=== PATIENT | male | born 1965 | race Caucasian/White ===

== ENCOUNTER 2019-07-14 10:41 | Observation (INO) | payer OTHER, SELFPAY ==
[2019-07-14] VITALS (9 sets, daily range): BP systolic 122–162; BP diastolic 74–91; PULSE 80–103; RESP 16–18; TEMP 36.8–36.9; O2SAT 96–99; BMI 28.7; BMI 23.1; BMI 23.2
--- NOTE | 2019-07-14 11:05 | EKG12_ITS ---
Test Reason : [facility] Blood Pressure : / mmHG Vent. Rate : 066 BPM Atrial Rate : 066 BPM P-R Int : 148 ms QRS Dur : 088 ms QT Int : 382 ms P-R-T Axes : 032 012 026 degrees QTc Int : 400 ms Normal sinus rhythm Normal ECG Confirmed by ALYSA CAO, MIKE ([id number]), supervising editor trailer KALEE TAMAYO ([id number]) on 07/16/2019 4:04:31 PM Referred By: Confirmed By:MIKE WATT MD
--- NOTE | 2019-07-14 11:05 | CT_ITS ---
STUDY: CT BRAIN WITHOUT CONTRAST REASON FOR EXAM: Male, 54 years old. PT CONFUSED, UNCOOPERATIVE, ANXIOUS, ETOH THIS A.M. RADIATION DOSAGE (If Supplied By Facility): CTDIvol = ( 44.99 ) mGy, DLP = ( 2641.42 ) mGycm TECHNIQUE: Transaxial CT imaging of the brain was performed without administration of intravenous contrast material. Individualized dose optimization techniques were used for this CT. COMPARISON: No relevant priors. FINDINGS: Normal soft tissue structures. Normal calvarium. Normal size ventricles and extra-axial spaces for the patient''s age. Normal white matter tracts of the cerebral hemispheres. Normal basal ganglia and thalami. Normal brainstem. Normal cerebellum. There is no intracranial hemorrhage. There are no findings of an acute ischemic infarction. Normal visualized paranasal sinuses. CT/Brain/Head without Contrast IMPRESSION: Normal unenhanced CT scan of the brain. Electronically Signed: Walker Lundberg, at 12:16 EDT Tel , Service support ,
--- NOTE | 2019-07-14 11:06 | ED.VISSUMM ---
- ER Visit Summary Date of Service: 07/14/19 Chief Complaint: [Confusion and inability to sleep well at night] History of Present Illness: The patient is a 54 M [presents to the emergency department via EMS from home. It is unclear why called EMS and patient is rather a poor historian. He does admit to having 1 drink this morning. Patient states he is not been sleeping well for the last 3 weeks. Patient denies any headache. He denies recent illness. Patient states that he did work yesterday and he works at a [employer] shop. Does admit to auditory and visual hallucinations at time. Denies being suicidal or homicidal. No real medical history otherwise.] Physical Examination: [HEENT-PERRLA, EOMI. Cranial nerves II through XII grossly intact. TMs clear. Mucous membranes moist. No adenopathy. Patient somewhat confused and that after introducing himself and I asked several questions of him he reached out his hand again and introduced himself a second time as if he had no recollection of the first introduction. Cardiovascular-regular rate and rhythm without murmur or ectopy Lungs-clear to auscultation, chest wall stable without crepitus or subcu emphysema Abdomen-normoactive bowel sounds, soft, nontender, no rebound or rigidity, no peritoneal signs. Extremities-intact ?4, normal range of motion, normal pulses, atraumatic] Test Results: [CBC with differential obtained showed a slightly elevated white count of 15.6, hemoglobin 16, hematocrit 46, platelets 340. Sodium was 138, potassium 3.1, chloride 102, CO2 27, glucose 115, BUN 14 and creatinine 1.09. Alcohol was less than 3. Urinalysis ordered and pending. CT scan of the brain without contrast was normal.] Emergency Department Course and Treatment: [Patient had an IV line established. Patient would not stay in his room and continually tried to leave however I do not feel he is capable of making an informed decision and I do not feel he has capacity to refuse treatment at this time. He is exhibiting bizarre behavior and does not seem to understand what is going on. I feel patient would benefit from admission. Patient was medicated with Haldol 5 mg IM and Ativan 2 mg IM.] Treatment Plan: [Admit] Disposition: [Admit] Impression: [Mental status change Delirium] Insomnia This note was generated with Dragon dictation software. It may contain incorrect words, spelling, and punctuation that were not noted in review of the chart prior to signing ED Disposition - Plan for ED Patient: Referrals: Care Physician,No Primary [Primary Care Provider] -
--- NOTE | 2019-07-14 11:09 | NURSING ---
NO OLD EKGS
--- NOTE | 2019-07-14 11:12 | EKG12_ITS ---
Test Reason : Blood Pressure : / mmHG Vent. Rate : 099 BPM Atrial Rate : 099 BPM P-R Int : 144 ms QRS Dur : 082 ms QT Int : 330 ms P-R-T Axes : 091 061 065 degrees QTc Int : 423 ms Normal sinus rhythm Nonspecific ST abnormality Abnormal ECG When compared with ECG of 14-JUL-2019 11:12, MANUAL COMPARISON REQUIRED, DATA IS UNCONFIRMED Confirmed by ZEUS CAO, SHRUTHI ([id number]), editorial cartoonist KALEE TAMAYO ([id number]) on 07/21/2019 3:51:58 PM Referred By: NICA Confirmed By:SHRUTHI SCHULZ MD
[2019-07-14 11:29] LABS: Absolute Lymphocyte Count 1.15 X10^3/uL (0.83-4.51); Absolute Neutrophil Count 13.6 X10^3/uL (2.0-7.7); Basophil# 0.05 X10^3/uL; Basophil% 0.3 % (0-1); Eosinophil# 0.02 X10^3/uL; Eosinophils% 0.1 % (0-5); Hemoglobin 15.8 g/dL (13.0-16.5); Lymphocyte # 1.15 X10^3/ul (4.0); Lymphocyte % 7.4 % (19-41); Mean Corp Hgb Conc 34.3 g/dL (32-36); Mean Corpuscular Hgb 30.3 pg (27.0-32.0); Mean Corpuscular Volume 88.1 fL (80-94); Mean Platelet Vol. 8.8 fl (6.2-12.0); Monocyte# 0.68 X10^3/uL; Monocyte% 4.4 % (0-10); NRBC Flagged by Analyzer 0 % (0-5); Neutrophil # 13.59 X10^3/uL (2.7-7.7); Neutrophil % 87.4 % (47-70); Platelet Count 340 K/mm3 (150-450); RBC Distribution Width CV 11.9 % (11.6-14.6); RBC Distribution Width SD 38.1 fl (35.1-43.9); Red Blood Count 5.22 M/mm3 (4.6-6.2); White Blood Count 15.6 K/mm3 (4.4-11.0)
[2019-07-14 11:40] LABS: Anion Gap 9 (5-15); BUN 14 mg/dL (7-18); BUN/Creat Ratio 12.8 RATIO (10-20); Calcium,Total 9.4 mg/dL (8.5-10.1); Chloride 102 mmol/L (98-107); Creatinine, Serum 1.09 mg/dL (0.70-1.30); EST Glomerular Filtration Rate 75 mL/min (>60); Est Glom Filt Rate - Afr Amer 90 mL/min (>60); Estimated Creatinine Clearance 71.59 ml/min; Glucose 115 mg/dL (74-106); Potassium 3.1 mmol/L (3.5-5.1); Sodium Level 138 mmol/L (136-145)
--- NOTE | 2019-07-14 11:50 | ED.RN ---
pt threw urine in trash. refuses to attempt. pt wandering around department attempting to hug personell. refuses to keep mask on and rips off identification band. multiple attempts to reorient
--- NOTE | 2019-07-14 12:01 | CM.ED ---
Social Work Consult: Mental Health Informant: Dr. Otero Chief Complaint: life is good. I am fine. Marital/Social History: to Clarissa Godoy. Patient has adult children that live outside of the home. Living Situation: Lives with spouse Support/Resources: Spouse. History: None Education/Employment History: Retired. Currently works for [employer] part-time. Completed high school. Patient reporting no difficulty with comprehension or understanding. Mental Health Treatment/History: None. Patient then stating maybe depression because patient father is stuck in bed. Patient stating that there are people taking care of patient father. No history of counseling, medication, or inpatient psychiatric placement. Triggers/Stressors: Recent stress with patient elderly parents. Patient has been assisting with care of parents and managing their home per patient spouse. Patient is also a worrier and has been concerned about the economy. Patient stating to have not slept for 3 weeks. Patient spouse confirming that patient has not been sleeping. Abuse Issues: Denies Substance Abuse/Use: None. Patient drinks a beer occasionally per patient spouse. Patient did have a beer this morning due to being worked up. Risk to Self/Others: Patient denies any homicidal or suicidal thoughts/plans or history of. Mental Status Exam: Oriented to place. Was unsure of the day of the week and thought the date of the . Appearance/General Behavior: Disheveled. Directable after multiple verbal directions. Example: Patient stood up from bed and went to computer in room and began attempting to type of computer, patient stating this is fun. This social science research assistant needed to direct patient back to bed x3 prior to patient following request. Mood/Affect: Elevated. Labile. Bizarre. Patient laughing at inappropriate times and with no context. Patient stating multiple times throughout assessment this is fun. Communication Pattern: Responds to questions but not always appropriately. Patient would give nonsensical answers at times. Thought Process: Denies any verbal hallucinations. When asking patient about visual hallucinations patient stating what do you think and laughing. Judgement: Poor Assessment: Met with patient in room. Introduced self as well as social science research assistant role. Patient agreeable to speaking with this social science research assistant. Patient referring to we multiple times. This social science research assistant asking patient to clarify who we is, patient laughing and not clarifying for this social science research assistant. Patient presenting as poor historian and difficult to assess. Patient continues to laugh throughout the assessment. Patient stating it is a good day. When asking patient to explain why it is a good day, patient would laugh. Patient stating I am fine. Patient not able to provide phone number for spouse. HRO Raj able to have patient spouse call the hospital. Telephone call from patient spouse, Clarissa. P: [phone]. Majority of information in assessment gathered from Clarissa. Clarissa stating to be concerned with patient current behavior. Clarissa stating that patient has been saying things that don't make sense. Clarissa stating that patient went to work at [employer] today and never got out of car. Clarissa stating that patient then came back to home: [address] [place], [place] and got a beer and was tearful. Clarissa wanting patient to come to hospital on own but patient did not want to do this. Clarissa then calling the police and the police called a squad. Patient brought into the ED via squad. Clarissa stating to feel safe with patient and that patient has not been participating in any dangerous behaviors. Clarissa stating that patient has been cleaning everything. Clarissa stating that patient has no medical history and is not taking any medications or has had any prescribed to patient. Clarissa also confirming that patient has no mental health history. Clarissa stating that patient worries. Collaborating with Dr. Otero. Plan is to complete medical work up and then reassess. PLAN: Undetermined. Nickie DE LEON, SAMANTHA
[2019-07-14 12:16] LABS: Alcohol, Blood (Medical)-Serum < 3.0 mg/dL
[2019-07-14] MEDS: Haloperidol Lactate 5 MG/ML Vial IM (12:33)
[2019-07-14] MEDS: LORazepam 2 MG/ML Syringe IV (12:33)
--- NOTE | 2019-07-14 12:34 | ED.RN ---
ativan given im per order change by dr sweet. order confirmed thru verbalization
--- NOTE | 2019-07-14 12:35 | ED.RN ---
pt continues to wander in [place]. attempting to walk out. able to remove clothes from room. security at bedside. unable to obtain a urine. dr spangler at this time
--- NOTE | 2019-07-14 13:40 | PCM.HP.STD ---
Problem List (1) Altered mental status Status: Acute History of Present Illness Date of Admission: 07/14/19 Chief Complaint: Altered mental status/behavior for a few days The patient is a 54 year old M with no significant medical problem was brought in to ER by EMS. As per the ER physician/older adult social work specialist in ER, his called EMS as patient has not been sleeping well for 3 weeks. Per patient, he is sleeping 4 to 5 hours for last 3 weeks. Sometimes the answers are tangential and not pertaining to question. He is confused and disoriented to time and place. Denies suicidal ideation/thoughts or behavior. He is not combative, aggressive or having hallucinations/delusions or delusional thoughts. He is not chronic alcohol use/dependence or chronic substance abuse but had 1 drink this morning. [] Initial labs in the ER shows normal alcohol level, urine tox negative. Liver test within normal limit. Ammonia normal. Mild hypokalemia. Leukocytosis 15.6 thousand with left shift but no fever or chills or any focal signs or symptoms of infection. CT unenhanced brain reported normal Past Medical History Allergies No Known Allergies Allergy (Verified 07/14/19 10:53) Home Medications: Ambulatory Orders Medication Instructions Recorded NK 07/14/19 Smoking Status: Current every day smoker - About half pack per day Tobacco Use: Cigarettes Alcohol: Occasional Drugs: None - *Family History Maternal History Items: Unknown Review of Systems Unable to obtain accurate/complete ROS d/t: Patient is altered mental status/confused and disoriented VTE Information - Inpt Only VTE Present on Admission: No VTE Mechan Device Prophylaxis: None VTE Pharm Prophylaxis ordered?: Yes Patient Problems: Active and Suspected Problems Altered mental status (Acute) - Physical Exam Vitals/I&O's: Vital Signs Temp Pulse Resp BP Pulse Ox 98.3 F 83 18 162/83 H 98 07/14/19 10:48 07/14/19 10:48 07/14/19 10:48 07/14/19 10:48 07/14/19 10:48 Oxygen Delivery Method Room Air Weight: 183 lb 6.793 oz Body Mass Index (BMI) 28.7 General: Cooperative, Confused, Disoriented, Lethargic HEENT: Atraumatic, PERRLA, EOMI, Normocephalic Oral: Dry Mucosa Neck: Supple, No JVD, Negative Carotid Bruits Lungs: Clear to auscultation, Normal air movement Cardiovascular: Regular rate, Regular Rhythm, Normal S1, Normal S2, No murmurs Abdomen: Bowel Sounds Present, Soft, Non Tender, Non-Distended, No Hepato-splenomegaly Extremities: No edema, Capillary Refill Less than 3 Seconds Skin: No rashes, No breakdown Musculoskeletal: No Tenderness to Palpation of Joints or Extremities Neurological: Cranial nerves II-XII grossly intact, Deep Tendon Reflexes 2+/4 and Symmetrical, Neuro grossly intact, - - Complete neuro exam unobtainable. Psych/Mental Status: Flat Affect Laboratory Results 07/14/19 11:15: WBC 15.6 H, RBC 5.22, Hgb 15.8, Hct 46.0, MCV 88.1, MCH 30.3, MCHC 34.3, RDW Std Deviation 38.1, RDW Coeff of Billy 11.9, Plt Count 340, MPV 8.8, Immature Gran % (Auto) 0.400, Neut % (Auto) 87.4 H, Lymph % (Auto) 7.4 L, [place] % (Auto) 4.4, Eos % (Auto) 0.1, Baso % (Auto) 0.3, Absolute Neuts (auto) 13.6 H, Absolute Lymphs (auto) 1.15, Nucleated RBC % 0 07/14/19 11:15: Sodium 138, Potassium 3.1 L, Chloride 102, Carbon Dioxide 27.0, Anion Gap 9, BUN 14, Creatinine 1.09, Estim Creat Clear Calc 71.59, Est GFR (MDRD) Af Amer 90, Est GFR (MDRD) Non-Af 75, BUN/Creatinine Ratio 12.8, Glucose 115 H, Calcium 9.4 07/14/19 11:15: Ethyl Alcohol < 3.0 Current Medications Potassium Chloride (K-Dur) 40 meq PO Q3H KAYLEIGH Stop: 07/14/19 16:31 Assessment/Plan All Active Problems Altered mental status (Acute) The patient is a 54 year old M with no significant medical problem was brought in to ER by EMS for confusion, disorganized behavior and disorientation. Initial labs in the ER shows normal alcohol level, urine tox negative. Liver test within normal limit. Ammonia normal. Mild hypokalemia. Leukocytosis 15.6 thousand with left shift but no fever or chills or any focal signs or symptoms of infection. CT unenhanced brain reported normal 1. Acute encephalopathy, exact etiology unclear most likely metabolic/environmental/behavioral from sleep deprivation: Patient is being admitted in PCU. UA with reflex urine culture ordered. Mild hypokalemia, potassium being replaced. Magnesium level normal. IV fluid normal saline 100 mils per hour. 2. Elevated blood pressure: Blood pressure in ER 162/83. Unclear about history of hypertension although patient denies it. 3. DVT prophylaxis: On Lovenox 40 mg subcu daily CODE STATUS full code OBSV E&M: 99409 Initial observation care L3
--- NOTE | 2019-07-14 13:54 | NURSING ---
PCU ALTERED MENTAL STATUS NICA
[2019-07-14 13:57] LABS: Amphetamine Urine VISTA NEGATIVE (<1000 ng/mL); Barbiturate Urine VISTA NEGATIVE (< 200 ng/mL); Benzodiazepine Urine VISTA NEGATIVE (< 200 ng/mL); Cocaine Urine VISTA NEGATIVE (< 300 ng/mL); Ecstacy Urine VISTA NEGATIVE (< 500 ng/mL); Methadone Urine VISTA NEGATIVE (< 300 ng/mL); PCP Urine VISTA NEGATIVE (< 25 ng/mL); THC Urine VISTA NEGATIVE (< 50 ng/mL); Vista UDS pH Range 6
[2019-07-14 14:10] LABS: AST(SGOT) 30 U/L (15-37); Alanine Aminotransfer ALT/SGPT 23 U/L (16-61); Alkaline Phosphatase 61 U/L (45-117); Bilirubin, Direct 0.23 mg/dL (0.00-0.30); Globulin 3.5 g/dL (2.2-4.2); Magnesium 1.8 mg/dL (1.6-2.6); Protein, Total 7.5 g/dL (6.4-8.2)
--- NOTE | 2019-07-14 14:13 | CM.ED ---
Social Work Plan is for patient to be admitted for further medical management and assessment. Telephone call to patient spouse, Clarissa. Clarissa updated on patient being admitted. Clarissa is agreeable to this. Provided Clarissa with patient room number and how to contact patient. Verbal support provided. Nickie DE LEON, SAMANTHA
[2019-07-14] MEDS: 0.9% Saline Lock 10 ML Syringe IV (16:08)
[2019-07-14] MEDS: 0.9% Normal Saline 1,000 ML 100 ML IV (16:09)
[2019-07-15 02:30] VITALS: BP 128/85; PULSE 71; RESP 16; TEMP 36.7; O2SAT 97
[2019-07-15 03:09] VITALS: PULSE 89
--- NOTE | 2019-07-15 06:50 | NURSING ---
Clarissa called and update given per patient saying it was okay.
[2019-07-15 06:52] LABS: Absolute Neutrophil Count 8.3 X10^3/uL (2.0-7.7); Basophil# 0.06 X10^3/uL; Basophil% 0.5 % (0-1); Eosinophil# 0.18 X10^3/uL; Eosinophils% 1.6 % (0-5); Hematocrit 44.6 % (40-54); Hemoglobin 15.2 g/dL (13.0-16.5); Lymphocyte % 15.4 % (19-41); Mean Corp Hgb Conc 34.1 g/dL (32-36); Mean Corpuscular Hgb 30.5 pg (27.0-32.0); Mean Corpuscular Volume 89.6 fL (80-94); Mean Platelet Vol. 8.8 fl (6.2-12.0); Monocyte# 0.77 X10^3/uL; NRBC Flagged by Analyzer 0 % (0-5); Neutrophil # 8.28 X10^3/uL (2.7-7.7); Platelet Count 309 K/mm3 (150-450); RBC Distribution Width CV 11.9 % (11.6-14.6); RBC Distribution Width SD 38.8 fl (35.1-43.9); Red Blood Count 4.98 M/mm3 (4.6-6.2)
[2019-07-15 07:08] VITALS: O2SAT 93
[2019-07-15 07:22] LABS: Anion Gap 8 (5-15); BUN 16 mg/dL (7-18); BUN/Creat Ratio 15.4 RATIO (10-20); Calcium,Total 8.9 mg/dL (8.5-10.1); Chloride 111 mmol/L (98-107); Creatinine, Serum 1.04 mg/dL (0.70-1.30); EST Glomerular Filtration Rate 79 mL/min (>60); Est Glom Filt Rate - Afr Amer 95 mL/min (>60); Estimated Creatinine Clearance 85.48 ml/min; Glucose 91 mg/dL (74-106); Potassium 4.3 mmol/L (3.5-5.1); Sodium Level 141 mmol/L (136-145); Thyroid Stim Hormone (TSH) 1.33 uIU/mL (0.358-3.74)
[2019-07-15 07:37] VITALS: BP 117/83; PULSE 83; RESP 18; TEMP 36.6; O2SAT 97
[2019-07-15 08:54] LABS: Bacteria 0 SEEN /hpf (None Seen); Mucous, Urine 0 SEEN /hpf (<or=2+); White Blood Cells 0 SEEN /hpf (0-5)
[2019-07-15 09:00] VITALS: PULSE 85
[2019-07-15 09:24] LABS: Color, Urine Yellow (Yellow); Glucose, Dipstick Normal (Normal); Ketone-Dipstick 5 mg/dl (Negative); Leukocyte Esterase-Dipstick Negative /ul (Negative); Nitrite-Dipstick Negative (Negative); Occult Blood-Urine 25 /ul (Negative); Protein-Dipstick Negative (Negative); Specific Gravity, Urine 1.015 (1.002-1.030); Urine Bilirubin Dipstick Negative (Negative); Urine Clarity Sl. Cloudy (Clear); Urine Urobilinogen Normal (Normal)
[2019-07-15 09:35] LABS: Red Blood Cells-Urine 0-5 SEEN /hpf (0-5)
[2019-07-15 09:36] LABS: Squamous Epithelial Cells - UA 0-5 SEEN /hpf (0-5)
--- NOTE | 2019-07-15 10:20 | DCINST_ITS ---
- Discharge Diagnoses Current Active Problems: Current Active and Chronic Problems Altered mental status (Acute) You will use the following diet at home:: Regular Your food should be the consistency of: Regular Discharge Activity: May Not Drive - FOR 1 Week until sees PCP Weight Bearing Status: Weight bearing as tolerated Call your doctor if you observe: Fever of 101 or Higher, Change in Color, Inability to urinate, Shortness of breath, Dizziness, Fainting spells, Chest pain, Prolonged hiccoughing, Increased palpitations (irregular heartbeat), Calf discomfort, Uncontrolled pain Allergies/Adverse Reactions: Allergies No Known Allergies Allergy (Verified 07/14/19 10:53) Medications to take at Discharge NK 07/14/19 Primary Care Physician: Care Physician,No Primary [NON-STAFF] - Please follow up with your Primary Care Physician in: IN 1-2 WEEKS Test Results: Test results from this visit will be discussed in further detail at your follow- up appointment, if applicable.
[2019-07-15 10:21] VITALS: BP 117/83; PULSE 83; RESP 18; TEMP 36.6; O2SAT 97
--- NOTE | 2019-07-15 10:21 | DS.PCM_ITS ---
Discharge Date and Diagnosis Date of Admission: 07/14/19 Date of Discharge: 07/15/19 - Primary Discharge Diagnosis Acute Problems: Active and Suspected Problems Altered mental status (Acute) Hospital Course and Treatment Summary of Care Provided: [] The patient is a 54 year old M with no significant medical problem was brought in to ER by EMS for confusion, disorganized behavior and disorientation. Initial labs in the ER shows normal alcohol level, urine tox negative. Liver test within normal limit. Ammonia normal. Mild hypokalemia. Leukocytosis 15.6 thousand with left shift but no fever or chills or any focal signs or symptoms of infection. CT unenhanced brain reported normal 1. Acute encephalopathy, exact etiology unclear most likely metabolic/environmental/behavioral from sleep deprivation: Patient is being admitted in PCU. Patient encephalopathy resolved. UA is negative. Mild hypokalemia corrected. Magnesium level normal. Patient had IV fluid normal saline. Leukocytosis resolved. 2. Elevated blood pressure: Blood pressure in ER 162/83. Repeat blood pressure normal. Further follow with PCP. Does not seem hypertension. Discharge medication reconciliation done. Discharge follow-up instructions completed. Discharge process discussed with the patient and all questions were answered to patient's satisfaction. Total time spent, exact 35 minutes on discharge meds reconciliation, examination, coordination of care with nurses and ancillary staff, review of imaging and blood test and discussion with the patient on follow-up instructio lisha Subjective: Seen and examined. Patient does not have psychotic symptoms of hallucination, delusion or delusional thoughts. Alert awake oriented x3. No confusion. Had a good sleep. Feels normal. - Physical Exam Vitals/I&O's: Vital Signs Temp Pulse Resp BP Pulse Ox 97.8 F 83 18 117/83 H 97 07/15/19 07:37 07/15/19 07:37 07/15/19 07:37 07/15/19 07:37 07/15/19 07:37 Oxygen Delivery Method Room Air Weight: 166 lb 0.129 oz Body Mass Index (BMI) 23.1 Intake and Output for Last 24 Hours 07/13/19 07/14/19 07/15/19 23:59 23:59 23:59 Intake Total 250 / 250 1250 / 1250 Output Total 325 / 325 Balance -75 / -75 1250 / 1250 General: Alert, Oriented x3, Cooperative HEENT: Atraumatic, PERRLA, EOMI, Normocephalic Neck: Supple, No JVD, Negative Carotid Bruits Lungs: Clear to auscultation, Normal air movement, No rhonchi, No wheeze, No rales Cardiovascular: Regular rate, Regular Rhythm, Normal S1, Normal S2, No murmurs Abdomen: Bowel Sounds Present, Soft, Non Tender, Non-Distended, No Hepato- splenomegaly Extremities: No edema, Capillary Refill Less than 3 Seconds Skin: No rashes, No breakdown Musculoskeletal: No Tenderness to Palpation of Joints or Extremities Neurological: Cranial nerves II-XII grossly intact, Deep Tendon Reflexes 2+/4 and Symmetrical, Neuro grossly intact, Motor Exam 5/5 strength throughout Psych/Mental Status: Normal Affect, Appropriate Laboratory Results 07/14/19 11:15: WBC 15.6 H, RBC 5.22, Hgb 15.8, Hct 46.0, MCV 88.1, MCH 30.3, MCHC 34.3, RDW Std Deviation 38.1, RDW Coeff of Billy 11.9, Plt Count 340, MPV 8.8, Immature Gran % (Auto) 0.400, Neut % (Auto) 87.4 H, Lymph % (Auto) 7.4 L, [place] % (Auto) 4.4, Eos % (Auto) 0.1, Baso % (Auto) 0.3, Absolute Neuts (auto) 13.6 H, Absolute Lymphs (auto) 1.15, Nucleated RBC % 0 07/14/19 11:15: Sodium 138, Potassium 3.1 L, Chloride 102, Carbon Dioxide 27.0, Anion Gap 9, BUN 14, Creatinine 1.09, Estim Creat Clear Calc 71.59, Est GFR (MDRD) Af Amer 90, Est GFR (MDRD) Non-Af 75, BUN/Creatinine Ratio 12.8, Glucose 115 H, Calcium 9.4 07/14/19 11:15: Ethyl Alcohol < 3.0 07/14/19 11:15: Magnesium 1.8, Total Bilirubin 0.80, Direct Bilirubin 0.23, AST 30, ALT 23, Alkaline Phosphatase 61, Total Protein 7.5, Albumin 4.0, Globulin 3.5 07/14/19 13:25: Ammonia 26.0 07/14/19 13:30: Urine Opiates Screen NEGATIVE, Urine Methadone Screen NEGATIVE, Ur Barbiturates Screen NEGATIVE, Ur Phencyclidine Scrn NEGATIVE, Ur Amphetamines Screen NEGATIVE, U Methamphetamin-MDMA NEGATIVE, U Benzodiazepines Scrn NEGATIVE, Urine Cocaine Screen NEGATIVE, U Cannabinoids Screen NEGATIVE, Ur Drug Screen Comment 07/15/19 06:42: WBC 11.0, RBC 4.98, Hgb 15.2, Hct 44.6, MCV 89.6, MCH 30.5, MCHC 34.1, RDW Std Deviation 38.8, RDW Coeff of Billy 11.9, Plt Count 309, MPV 8.8, Immature Gran % (Auto) 0.500, Neut % (Auto) 75.0 H, Lymph % (Auto) 15.4 L, [place] % (Auto) 7.0, Eos % (Auto) 1.6, Baso % (Auto) 0.5, Absolute Neuts (auto) 8.3 H, Absolute Lymphs (auto) 1.70, Nucleated RBC % 0 07/15/19 06:42: Sodium 141, Potassium 4.3, Chloride 111 H, Carbon Dioxide 22.0, Anion Gap 8, BUN 16, Creatinine 1.04, Estim Creat Clear Calc 85.48, Est GFR (MDRD) Af Amer 95, Est GFR (MDRD) Non-Af 79, BUN/Creatinine Ratio 15.4, Glucose 91, Calcium 8.9, TSH 1.33 07/15/19 08:45: Urine Color Yellow, Urine Clarity Sl. Cloudy, Urine pH 6.0, Ur Specific [place] 1.015, Urine Protein Negative, Urine Glucose (UA) Normal, Urine Ketones 5 H, Urine Occult Blood 25 H, Urine Nitrite Negative, Urine Bilirubin Negative, Urine Urobilinogen Normal, Ur Leukocyte Esterase Negative, Urine RBC 0-5 SEEN, Urine WBC 0 SEEN, Ur Squamous Epith Cells 0-5 SEEN, Urine Bacteria 0 SEEN, Urine Mucus 0 SEEN Current Medications Acetaminophen (Tylenol) 650 mg PO Q6H PRN PRN PRN Reason: Pain Score 1-10/Temp > 100.7 F Albuterol Sulfate (Ventolin Aerosols) 2.5 mg INHALATION Q2H PRN PRN PRN Reason: SOB/Wheezing Dextrose (D50w Syringe) 0 gm IV X1 PRN; Protocol PRN Reason: Hypoglycemia Glucagon () 1 mg IM .X1 PRN PRN Reason: Hypoglycemia Ibuprofen (Motrin) 400 mg PO Q4H PRN PRN PRN Reason: Pain Score 4-5/10 Morphine Sulfate () 2 mg IV Q3H PRN PRN PRN Reason: Pain Score 6-10/10 Nitroglycerin (Nitrostat) 0.4 mg SUBLINGUAL Q5M PRN PRN Reason: CARDIAC/CHEST PAIN Ondansetron HCl (Zofran) 4 mg IV Q8H PRN PRN PRN Reason: NAUSEA/VOMITING Senna/Docusate Sodium (Senokot-S, Leonor-Colace) 2 tablet PO BID PRN PRN PRN Reason: Constipation Sodium Chloride () 10 - 40 ml IV UD PRN PRN Reason: SALINE FLUSH Last Admin: 07/14/19 16:08 Dose: 10 ml Documented by: Discharge Activity: May Not Drive - FOR 1 Week until sees PCP Weight Bearing Status: Weight bearing as tolerated Call your doctor if you observe: Fever of 101 or Higher, Change in Color, Inability to urinate, Shortness of breath, Dizziness, Fainting spells, Chest pain, Prolonged hiccoughing, Increased palpitations (irregular heartbeat), Calf discomfort, Uncontrolled pain Home Medications: Medications to take at Discharge NK 07/14/19 Primary Care Physician: Care Physician,No Primary [NON-STAFF] - Please follow up with your Primary Care Physician in: IN 1-2 WEEKS Medical Necessity - Tobacco Use Smoking Status: Heavy Smoker (>10/day) Tobacco Use: Cigarettes Meaningful Use Info Meaningful Use Diagnoses (Choose all that apply): None applicable OBSV E&M: 81536 Observation care discharge
--- NOTE | 2019-07-15 10:44 | PCA ---
List of area PCPs given to patient with discharge paperwork.
--- NOTE | 2019-07-15 11:08 | CASEMGMT ---
MELVI BEAR NOTE: Discharge order is in. MELVI BEAR to room to talk with pt. He denies any discharge needs or concerns. Noted demographics show pt does not have a PCP. Pt states he does, but does not remember his name. Pt placed call to his who states his PCP is Dr Danie Yates @ [facility]. MELVI BEAR verified this is listed as pt's Provider in [facility]. Pt states his will be taking him home @ discharge. Chacho THOMASN MELVI BEAR
== END 2019-07-15 10:21 | disposition home or self-care (01) ==
LOC: ED 11:58 → PCU 16:33
PROVIDERS: Admitting Provider Internal Medicine; Emergency Provider Emergency Medicine; PCP Family Medicine; Visit Provider Internal Medicine
DX: G93.40 Encephalopathy, unspecified (principal); E87.6 Hypokalemia; D72.829 Elevated white blood cell count, unspecified; F17.210 Nicotine dependence, cigarettes, uncomplicated; R03.0 Elevated blood-pressure reading, without diagnosis of hypertension
CPT/HCPCS: 36415; 70450; 80048; 80076; 80307; 80320; 81001; 82140; 83735; 84443; 85025; 87086; 93005; 96361; 96372; 96374; 99218; 99251; 99285; J7030; A4216; G0378; G0463; G0480

== ENCOUNTER 2019-08-27 17:07 | Observation (INO) | payer OTHER, SELFPAY ==
[2019-07-14 15:34] VITALS: BMI 23.1
[2019-08-27 17:12] VITALS: BP 121/65; PULSE 74; RESP 15; TEMP 37.1; O2SAT 95; BMI 22.4
[2019-08-27 17:16] VITALS: BMI 22.4
--- NOTE | 2019-08-27 17:30 | CT_ITS ---
STUDY: CT BRAIN WITHOUT CONTRAST REASON FOR EXAM: Male, 54 years old. CONFUSION X 4 DAYS, HEADACHE, LAUGHING AND MAKING INAPPROPRIATE COMMENTS RADIATION DOSAGE (If Supplied By Facility): CTDIvol = ( 44.99 ) mGy, DLP = ( 796.11 ) mGycm TECHNIQUE: Transaxial CT imaging of the brain was performed without administration of intravenous contrast material. Individualized dose optimization techniques were used for this CT. COMPARISON: Prior study of 07/14/2019 FINDINGS: Normal soft tissue structures. Normal calvarium. Normal size ventricles and extra-axial spaces for the patient''s age. Normal white matter tracts of the cerebral hemispheres. Normal basal ganglia and thalami. Normal brainstem. Normal cerebellum. There is no intracranial hemorrhage. There are no findings of an acute ischemic infarction. Normal visualized paranasal sinuses. CT/Brain/Head without Contrast IMPRESSION: Normal unenhanced CT scan of the brain. Electronically Signed: Mauricio Kessler MD at 18:17 EDT , Service support ,
--- NOTE | 2019-08-27 17:30 | EKG12_ITS ---
Test Reason : CONFUSION Blood Pressure : / mmHG Vent. Rate : 070 BPM Atrial Rate : 070 BPM P-R Int : 136 ms QRS Dur : 084 ms QT Int : 370 ms P-R-T Axes : 026 070 065 degrees QTc Int : 399 ms Normal sinus rhythm Normal ECG Confirmed by TONJA ECHEVARRIA ([id number]), writer editor ACOSTA DEY ([id number]) on 08/31/2019 2:20:06 PM Referred By: DEE Confirmed By:TONJA ECHEVARRIA
--- NOTE | 2019-08-27 17:33 | ED.DCSUM_ITS ---
History of Present Illness Chief Complaint: Confusion Informant: Patient, Significant Other Onset: Yesterday Narrative: Presents by EMS from home, significant other is present for history. Apparently patient has not slept much for the last 5 to 6 weeks, sleeps 2 to 3 hours a day. Reports there is slight increased stress at work. He is still able to work however when he returned home yesterday 8:30 PM spouse states he keeps repeating himself and laughing. This is new behavior. No known trauma. No past medical history. Denies any alcohol or illicit drug use. Spouse also states he was seen initially 6 weeks ago with his insomnia and was admitted to the hospital however discharged the next day. Was told likely from severe sleep deprivation versus personality disorder. During discussion exam patient would repeat his birthday and before answering questions states that you must laugh first. Prior similar symptoms: Yes Past Medical History - Allergies and Home Meds Allergies/Adverse Reactions: Allergies No Known Allergies Allergy (Verified 08/27/19 17:11) Past Medical History: None Smoking Status: Heavy Smoker (>10/day) - Family History Maternal Family History: Reports: Unknown Paternal Family History: Reports: Hypertension Review of Systems General: Denies: Chills, Fever, Sweats Eyes: Denies: Visual changes - bilaterally, Diplopia ENT: Denies: Rhinorrhea, Sore throat Cardiovascular: Denies: Chest pain, Palpitations Respiratory: Denies: Dyspnea, Cough, Dyspnea on exertion Gastrointestinal: Denies: Abdominal pain, Nausea, Vomiting, Diarrhea, Melena, Hematochezia Genitourinary: Denies: Dysuria, Hematuria, Frequency Musculoskeletal: Denies: Back pain, Extremity Pain Skin: Denies: Rash, Wounds Neurological: Reports: - - Confusion. Denies: Headache, Weakness, Numbness Physical Exam Vital Signs/Narrative: Vital Signs Temp Pulse Resp BP Pulse Ox 08/27/19 17:12 98.8 F 74 15 121/65 H 95 Inital Vital Signs reviewed: Yes General: Well nourished, Well developed, No Acute Distress, - - Spontaneous laughing with questions, moving all 4 extremities. Head: Normocephalic, Atraumatic Eyes: Perrl, EOMI ENT: Moist mucous membranes, No rhinorrhea Neck: Supple, Nontender Cardiovascular: Regular rate, Regular rhythm, No murmurs Respiratory: No distress, CTA bilaterally, Chest nontender Abdomen: Soft, Nontender, Nondistended, Normal bowel sounds Back: Nontender, Normal Inspection Extremities: Nontender, No edema Skin: Normal color, No rash Neurological: Alert, Cranial nerves II-XII grossly intact, Normal Strength, Normal Sensation, - - Alert oriented to person and place, when asked about year he would tell me his birthdate and repeat this. NIH of 1, due to the patient not telling me what month it is and would tell me his birthdate. Psychological: Normal affect, Normal Mood Diagnostic/Tx/Re-eval Clinical Impression(s) from Imaging Studies Brain CT 08/27/19 17:30 IMPRESSION: Normal unenhanced CT scan of the brain. Electronically Signed: Mauricio Kessler MD at 18:17 EDT , Service support , Chest X-Ray 08/27/19 17:50 IMPRESSION: Normal x-ray examination of the chest. Electronically Signed: Mauricio Kessler MD at 18:12 EDT , Service support , Abnormal Lab Results 08/27/19 08/27/19 08/27/19 17:45 17:45 17:45 WBC 12.0 H RBC 5.25 Hgb 16.0 Hct 47.7 MCV 90.9 MCH 30.5 MCHC 33.5 RDW Std Deviation 40.1 RDW Coeff of Billy 12.1 Plt Count 304 MPV 8.8 Immature Gran % (Auto) 0.400 Neut % (Auto) 68.4 Lymph % (Auto) 21.8 [place] % (Auto) 6.9 Eos % (Auto) 1.9 Baso % (Auto) 0.6 Absolute Neuts (auto) 8.2 H Absolute Lymphs (auto) 2.62 Nucleated RBC % 0 PT 13.8 INR 1.1 APTT 33.6 Sodium 137 Potassium 4.1 Chloride 107 Carbon Dioxide 27.0 Anion Gap 3 L BUN 10 Creatinine 1.06 Estim Creat Clear Calc 81.19 Est GFR (MDRD) Af Amer 93 Est GFR (MDRD) Non-Af 77 BUN/Creatinine Ratio 9.4 L Glucose 92 Calcium 8.5 Total Bilirubin 0.90 AST 31 ALT 20 Alkaline Phosphatase 63 Total Protein 7.1 Albumin 3.6 Globulin 3.5 Albumin/Globulin Ratio 1.0 Urine Color Urine Clarity Urine pH Ur Specific [place] Urine Protein Urine Glucose (UA) Urine Ketones Urine Occult Blood Urine Nitrite Urine Bilirubin Urine Urobilinogen Ur Leukocyte Esterase Urine RBC Urine WBC Ur Squamous Epith Cells Urine Bacteria Urine Mucus Urine Opiates Screen Urine Methadone Screen Ur Barbiturates Screen Ur Phencyclidine Scrn Ur Amphetamines Screen U Methamphetamin-MDMA U Benzodiazepines Scrn Urine Cocaine Screen U Cannabinoids Screen Ur Drug Screen Comment Ethyl Alcohol 08/27/19 08/27/19 08/27/19 17:45 18:30 18:30 WBC RBC Hgb Hct MCV MCH MCHC RDW Std Deviation RDW Coeff of Billy Plt Count MPV Immature Gran % (Auto) Neut % (Auto) Lymph % (Auto) [place] % (Auto) Eos % (Auto) Baso % (Auto) Absolute Neuts (auto) Absolute Lymphs (auto) Nucleated RBC % PT INR APTT Sodium Potassium Chloride Carbon Dioxide Anion Gap BUN Creatinine Estim Creat Clear Calc Est GFR (MDRD) Af Amer Est GFR (MDRD) Non-Af BUN/Creatinine Ratio Glucose Calcium Total Bilirubin AST ALT Alkaline Phosphatase Total Protein Albumin Globulin Albumin/Globulin Ratio Urine Color Yellow Urine Clarity Clear Urine pH 6.5 Ur Specific [place] 1.005 Urine Protein Negative Urine Glucose (UA) Normal Urine Ketones Negative Urine Occult Blood 25 H Urine Nitrite Negative Urine Bilirubin Negative Urine Urobilinogen Normal Ur Leukocyte Esterase Negative Urine RBC 0-5 SEEN Urine WBC 0 SEEN Ur Squamous Epith Cells 0-5 SEEN Urine Bacteria 0 SEEN Urine Mucus 0 SEEN Urine Opiates Screen NEGATIVE Urine Methadone Screen NEGATIVE Ur Barbiturates Screen NEGATIVE Ur Phencyclidine Scrn NEGATIVE Ur Amphetamines Screen NEGATIVE U Methamphetamin-MDMA NEGATIVE U Benzodiazepines Scrn NEGATIVE Urine Cocaine Screen NEGATIVE U Cannabinoids Screen NEGATIVE Ur Drug Screen Comment Ethyl Alcohol < 3.0 - EKG Initial EKG Interpretation: Sinus Rhythm - Sinus rhythm rate of 70, no ST or T wave changes. - Medical Decision Making Patient NIH of 1 due to not telling me the month. He is repeating his birthday and laughing. There is no focal neurologic deficits. New onset repeating an slight confusion per significant other. Symptoms started last night therefore outside the window for any TPA. Altered mental status work-up initiated CT head was negative chest x-ray urine tox screen electrolytes are normal. Reevaluation he still repeating his birthdate and would not tell me the year. From evaluation of his admission on , apparently he improved before discharge. There is no MRI studies of his brain. The still fairly acute symptoms with his insomnia 6 weeks ago however confusion noted from his last admission. I do feel patient will need an MRI of the brain for further rule out. Therefore I spoke with hospitalist for admission. ED Disposition - Plan for ED Patient: Disposition: Acute Care Hospital [facility] Diagnosis: Delirium
--- NOTE | 2019-08-27 17:50 | RAD_ITS ---
STUDY: X-RAY CHEST REASON FOR EXAM: Male, 54 years old. reports confusion x4 days. pt able to answer questions TECHNIQUE: Single AP portable view of the chest. COMPARISON: None. FINDINGS: court recording monitor leads are present. The lungs are clear and expanded. There is no demonstrated pleural abnormality. Normal size heart. Normal mediastinum and rachel. Normal visualized pulmonary arteries. Normal visualized aortic arch and descending thoracic aorta. Normal visualized thoracic spine. Normal visualized ribs, clavicles, and shoulders. There is no demonstrated abnormality of the visualized soft tissue structures of the upper abdomen. RAD/Chest 1 View (Portable) IMPRESSION: Normal x-ray examination of the chest. Electronically Signed: Mauricio Kessler MD at 18:12 EDT , Service support ,
[2019-08-27 17:51] LABS: Absolute Lymphocyte Count 2.62 X10^3/uL (0.83-4.51); Absolute Neutrophil Count 8.2 X10^3/uL (2.0-7.7); Basophil# 0.07 X10^3/uL; Basophil% 0.6 % (0-1); Eosinophil# 0.23 X10^3/uL; Eosinophils% 1.9 % (0-5); Hematocrit 47.7 % (40-54); Lymphocyte # 2.62 X10^3/ul (4.0); Lymphocyte % 21.8 % (19-41); Mean Corp Hgb Conc 33.5 g/dL (32-36); Mean Corpuscular Hgb 30.5 pg (27.0-32.0); Mean Corpuscular Volume 90.9 fL (80-94); Mean Platelet Vol. 8.8 fl (6.2-12.0); Monocyte# 0.83 X10^3/uL; Monocyte% 6.9 % (0-10); NRBC Flagged by Analyzer 0 % (0-5); Neutrophil # 8.23 X10^3/uL (2.7-7.7); Neutrophil % 68.4 % (47-70); Platelet Count 304 K/mm3 (150-450); RBC Distribution Width CV 12.1 % (11.6-14.6); RBC Distribution Width SD 40.1 fl (35.1-43.9); Red Blood Count 5.25 M/mm3 (4.6-6.2)
[2019-08-27 18:07] LABS: AST(SGOT) 31 U/L (15-37); Alanine Aminotransfer ALT/SGPT 20 U/L (16-61); Albumin, Serum 3.6 g/dL (3.2-5.0); Alkaline Phosphatase 63 U/L (45-117); BUN 10 mg/dL (7-18); BUN/Creat Ratio 9.4 RATIO (10-20); Calcium,Total 8.5 mg/dL (8.5-10.1); Creatinine, Serum 1.06 mg/dL (0.70-1.30); EST Glomerular Filtration Rate 77 mL/min (>60); Est Glom Filt Rate - Afr Amer 93 mL/min (>60); Estimated Creatinine Clearance 81.19 ml/min; Globulin 3.5 g/dL (2.2-4.2); Glucose 92 mg/dL (74-106); Protein, Total 7.1 g/dL (6.4-8.2)
[2019-08-27 18:08] LABS: Anion Gap 3 (5-15); Chloride 107 mmol/L (98-107); Potassium 4.1 mmol/L (3.5-5.1); Sodium Level 137 mmol/L (136-145)
[2019-08-27 18:20] LABS: International Normalized Ratio 1.1; Prothrombin Time (Protime)PT. 13.8 SECONDS (11.7-14.9)
[2019-08-27 18:21] LABS: Partial Thromboplast Time 33.6 Seconds (24.1-36.2)
[2019-08-27 18:25] LABS: Alcohol, Blood (Medical)-Serum < 3.0 mg/dL
[2019-08-27 18:37] LABS: Bacteria 0 SEEN /hpf (None Seen); Mucous, Urine 0 SEEN /hpf (<or=2+); White Blood Cells 0 SEEN /hpf (0-5)
[2019-08-27 18:41] LABS: Color, Urine Yellow (Yellow); Glucose, Dipstick Normal (Normal); Ketone-Dipstick Negative (Negative); Leukocyte Esterase-Dipstick Negative /ul (Negative); Nitrite-Dipstick Negative (Negative); Occult Blood-Urine 25 /ul (Negative); Protein-Dipstick Negative (Negative); Specific Gravity, Urine 1.005 (1.002-1.030); Urine Bilirubin Dipstick Negative (Negative); Urine Clarity Clear (Clear); Urine Urobilinogen Normal (Normal); Urine pH 6.5 (5.0 - 8.0)
[2019-08-27 18:47] LABS: Red Blood Cells-Urine 0-5 SEEN /hpf (0-5); Squamous Epithelial Cells - UA 0-5 SEEN /hpf (0-5)
[2019-08-27 18:51] LABS: Amphetamine Urine VISTA NEGATIVE (<1000 ng/mL); Barbiturate Urine VISTA NEGATIVE (< 200 ng/mL); Benzodiazepine Urine VISTA NEGATIVE (< 200 ng/mL); Cocaine Urine VISTA NEGATIVE (< 300 ng/mL); Ecstacy Urine VISTA NEGATIVE (< 500 ng/mL); Methadone Urine VISTA NEGATIVE (< 300 ng/mL); PCP Urine VISTA NEGATIVE (< 25 ng/mL); THC Urine VISTA NEGATIVE (< 50 ng/mL); Vista UDS pH Range 6
--- NOTE | 2019-08-27 19:14 | PCM.HP.STD ---
Problem List (1) Acute psychosis Status: Acute History of Present Illness Date of Admission: 08/27/19 Chief Complaint: confusion The patient is a 54 year old M with no previous medical history presenting with a 6-week history of worsening confusion. Patient has been repeatedly saying :you have to laugh. Patient believes that he has obsessive-compulsive disorder and he has been reading about obsessive-compulsive disorder. His reported patient has been cleaning; organizing; and has not been himself. Associated with his bitemporal headache and insomnia. Brain CT at this presentation was unremarkable. Chest x-ray was unremarkable. Urinalysis was unremarkable. Ethanol level was normal. Urine drug screen was unremarkable. Of note, patient was admitted at a hospital on 07/14/2019 and discharged on 07/15/2019. Discharge diagnosis was altered mental status. At time patient has some mild hypokalemia that was corrected. He also had some leukocytosis with no focal signs or symptoms of infection. A CT head at that time was unremarkable. Reportedly his symptoms went away and has now reoccurred. Repeat CT head on this presentation (08/27/2019) was unremarkable. On this presentation emergent department doctor was of the view that although we have had a CT of the patient 's head we have not obtained MRI and patient should at least be watched at the hospital overnight for MRI to be obtained. Per his the patient might of had some undiagnosed depression. Past Medical History Medical History: Medical History (Last Updated 08/27/19 @ 21:[address] Sabas Blankenship MD) Denies previous medical history Allergies No Known Allergies Allergy (Verified 08/27/19 17:11) Home Medications: Ambulatory Orders Medication Instructions Recorded NK 07/14/19 Surgical History: no surgical history Smoking Status: Current every day smoker Tobacco Use: Cigarettes - *Family History Maternal History Items: Heart Disease Paternal History Items: Hypertension Review of Systems Constitutional: Denies: Chills, Fever, Weight Change HEENT: Reports: Head Aches - reported patient has bitemporal headache.. Denies: Sinus Congestion, Sinus Drainage Cardiovascular: Denies: Chest Pain, Palpitations Respiratory: Denies: Cough, Shortness of breath at rest, Sputum production Gastrointestinal: Denies: Abdominal Pain, Nausea, Vomiting Genitourinary: Denies: Dysuria Musculoskeletal: Denies: Joint Pain, Joint Tenderness Skin: Denies: Rash, Wounds Neurological: Denies: Numbness, Tingling, Focal weakness Psychiatric: Reports: Depression. Denies: Anxiety, Homicidal Ideations, Suicidal Ideations Hematologic/ Lymphatic: Denies: Easy Bruising, Easy Bleeding VTE Information - Inpt Only VTE Present on Admission: No VTE Mechan Device Prophylaxis: None VTE Pharm Prophylaxis ordered?: Yes Patient Problems: Active and Suspected Problems (Last Updated 08/27/19 @ 21:[address] Sabas Blankenship MD) Acute psychosis (Acute) - Physical Exam Vitals/I&O's: Vital Signs Temp Pulse Resp BP Pulse Ox 98.8 F 74 15 121/65 H 95 08/27/19 17:12 08/27/19 17:12 08/27/19 17:12 08/27/19 17:12 08/27/19 17:12 Oxygen Delivery Method Room Air Weight: 72.9 kg Body Mass Index (BMI) 22.4 Finger Stick Blood Glucose 73 General: Alert, Confused - Patient knows his date of . Patient knows that he is at a hospital. When asked the current year he did not provide an answer. Patient with confused conversation. HEENT: Atraumatic, PERRLA, EOMI, Normocephalic Neck: Supple, No JVD, Negative Carotid Bruits Lungs: Clear to auscultation, Normal air movement Cardiovascular: Regular rate, Regular Rhythm, Normal S1, Normal S2, No murmurs Abdomen: Bowel Sounds Present, Soft, Non Tender Extremities: No edema, Capillary Refill Less than 3 Seconds Skin: No rashes Musculoskeletal: No Tenderness to Palpation of Joints or Extremities Neurological: Cranial nerves II-XII grossly intact Psych/Mental Status: Delusions, Irrational Behavior - Patient grabbing examiner's hand and asking examiner to tell why he (patient) is here. Patient asking examiner to look it up and giving cell phone to examiner. Laboratory Results 08/27/19 17:45: WBC 12.0 H, RBC 5.25, Hgb 16.0, Hct 47.7, MCV 90.9, MCH 30.5, MCHC 33.5, RDW Std Deviation 40.1, RDW Coeff of Billy 12.1, Plt Count 304, MPV 8.8, Immature Gran % (Auto) 0.400, Neut % (Auto) 68.4, Lymph % (Auto) 21.8, [place] % (Auto) 6.9, Eos % (Auto) 1.9, Baso % (Auto) 0.6, Absolute Neuts (auto) 8.2 H, Absolute Lymphs (auto) 2.62, Nucleated RBC % 0 08/27/19 17:45: PT 13.8, INR 1.1, APTT 33.6 08/27/19 17:45: Sodium 137, Potassium 4.1, Chloride 107, Carbon Dioxide 27.0, Anion Gap 3 L, BUN 10, Creatinine 1.06, Estim Creat Clear Calc 81.19, Est GFR (MDRD) Af Amer 93, Est GFR (MDRD) Non-Af 77, BUN/Creatinine Ratio 9.4 L, Glucose 92, Calcium 8.5, Total Bilirubin 0.90, AST 31, ALT 20, Alkaline Phosphatase 63, Total Protein 7.1, Albumin 3.6, Globulin 3.5, Albumin/Globulin Ratio 1.0 08/27/19 17:45: Ethyl Alcohol < 3.0 08/27/19 18:30: Urine Color Yellow, Urine Clarity Clear, Urine pH 6.5, Ur Specific [place] 1.005, Urine Protein Negative, Urine Glucose (UA) Normal, Urine Ketones Negative, Urine Occult Blood 25 H, Urine Nitrite Negative, Urine Bilirubin Negative, Urine Urobilinogen Normal, Ur Leukocyte Esterase Negative, Urine RBC 0-5 SEEN, Urine WBC 0 SEEN, Ur Squamous Epith Cells 0-5 SEEN, Urine Bacteria 0 SEEN, Urine Mucus 0 SEEN 08/27/19 18:30: Urine Opiates Screen NEGATIVE, Urine Methadone Screen NEGATIVE, Ur Barbiturates Screen NEGATIVE, Ur Phencyclidine Scrn NEGATIVE, Ur Amphetamines Screen NEGATIVE, U Methamphetamin-MDMA NEGATIVE, U Benzodiazepines Scrn NEGATIVE, Urine Cocaine Screen NEGATIVE, U Cannabinoids Screen NEGATIVE, Ur Drug Screen Comment Assessment/Plan All Active Problems (Last Updated 08/27/19 @ 21:[address] Sabas Blankenship MD) Altered mental status (Acute) Acute psychosis (Acute) The patient is a 54 year old M with no previous medical history presenting with a 6-week history of worsening confusion Acute psychosis TSH and ammonia on admission on 07/13/2021 07/15/2019 was unremarkable. Repeat ammonia level. Check vitamin B-12. RPR ordered. Get MRI of the head. Will put patient on low-dose Seroquel. Drug screen at the emergency department was unremarkable. CT brain unremarkable on previous admission and on his current presentation was unremarkable. A 12 chest x-ray imaging was independently reviewed. Chest x-ray did not show any acute cardiopulmonary process. Alcohol level is normal Anticipate patient will need transfer to a place with psychiatry services since patient is in florid psychosis. For now will observe overnight and get MRI. Headache Tylenol PRN. Tobacco abuse Nicotine patch ordered. DVT prophylaxis Subcutaneous Lovenox.. OBSV E&M: [id number] Initial observation care L3
[2019-08-27 19:24] VITALS: BP 144/102; PULSE 70; RESP 18; TEMP 36.9; O2SAT 96
--- NOTE | 2019-08-27 19:30 | CM.ED ---
Social Work Consult: Support Informant: Dr. Manuel Jackson states that patient spouse, Clarissa is requesting to speak with this social director. This social director reviewed patient chart. This social director had completed mental health assessment with patient in June 2019. Met with patient and patient spouse in room. Introduced self as well as social director role. Patient states to remember this social director from June. Patient then states where do I sign when looking at this social director clip board. This social director clarifying that this social director does not need patient to sign anything. Patient then states please laugh, I need you to laugh. Patient then begins to appear to be drawling on arms. Patient presenting with bizarre behavior. Patient states what time is it, oh it is 3:00. The time on the clock is 7:24pm. Patient state I am fine, I want to go home. Patient spouse tearful. This social director then speaking with patient spouse outside patient room. Patient presenting with disorganized thoughts/speech and bizarre behavior. Clarissa states that patient has not gotten any better since June 2019. In June patient presented with bizarre behavior and had not slept for 3 weeks. Clarissa states to think that patient is hearing voices. Clarissa also states that patient has been obsessed with believing that patient is OCD. Clarissa states that patient has had outburst and informed Clarissa to be able to see in three dimensions. Clarissa denies observing any suicidal behavior or thoughts for patient. Clarissa states that patient has not been sleeping and will get in cycles of going outside and smoking, coming back in the house and turning the TV one and then back off and then going back out and smoking. Clarissa states to be concerned for own safety due to patient bizarre behavior. Support provided. Per Dr. Jackosn patient is to be admitted to obtain an MRI to clear patient medically. Dr. Jackson recommending to hospitalist if MRI comes back clear to refer patient to inpatient psychiatric facility for further follow up. Social Work to follow as needed. Nickie DE LEON, SAMANTHA
[2019-08-27 20:22] VITALS: BMI 22.0
[2019-08-27 20:28] VITALS: BP 104/72; PULSE 84; RESP 18; TEMP 36.7; O2SAT 96
[2019-08-27] MEDS: QUEtiapine 25 MG Tablet PO (21:31)
[2019-08-27] MEDS: 0.9% Saline Lock 10 ML Syringe IV (21:33)
[2019-08-27 21:41] LABS: Vitamin B12 425 pg/mL (211-911)
[2019-08-27 21:46] VITALS: TEMP 38.1
[2019-08-28 01:33] VITALS: BP 110/82; PULSE 74; RESP 18; TEMP 36.7; O2SAT 96
--- NOTE | 2019-08-28 02:57 | NURSING ---
Pt was repeatedly hitting call light. Staff would respond to room and as soon as we would leave he would hit the call light again. This went on for at least an hour so we brought pt out to nurses' station [facility]. He was provided with cookies and water and he proceeded to throw everything on the floor. He continues to tell staff you have to laugh! He repeatedly calls this RN Clarissa which is his 's name.
--- NOTE | 2019-08-28 03:19 | NURSING ---
Pt keeps throwing his cell phone on the floor. Keeps asking for his . Alot of obsessive-compulsive behavior.
--- NOTE | 2019-08-28 08:13 | NURSING ---
Pt in Sally chair in room with this nurse at this time. Pt keeps repeating, COVID 19, spells it out, C-[id number]-I-D 19, then keeps saying his name and his birthdate and name. also repeats I surrender. you have to laugh at me. 3-2-1, 1-2-3.
[2019-08-28 08:15] LABS: Absolute Lymphocyte Count 2.44 X10^3/uL (0.83-4.51); Absolute Neutrophil Count 7.5 X10^3/uL (2.0-7.7); Basophil# 0.07 X10^3/uL; Basophil% 0.6 % (0-1); Eosinophils% 1.8 % (0-5); Hematocrit 48.7 % (40-54); Hemoglobin 16.5 g/dL (13.0-16.5); Lymphocyte # 2.44 X10^3/ul (4.0); Lymphocyte % 22.2 % (19-41); Mean Corp Hgb Conc 33.9 g/dL (32-36); Mean Corpuscular Hgb 30.1 pg (27.0-32.0); Mean Corpuscular Volume 88.9 fL (80-94); Mean Platelet Vol. 8.7 fl (6.2-12.0); Monocyte# 0.71 X10^3/uL; Monocyte% 6.5 % (0-10); NRBC Flagged by Analyzer 0 % (0-5); Neutrophil # 7.52 X10^3/uL (2.7-7.7); Neutrophil % 68.5 % (47-70); Platelet Count 301 K/mm3 (150-450); RBC Distribution Width CV 12.1 % (11.6-14.6); RBC Distribution Width SD 39.5 fl (35.1-43.9); Red Blood Count 5.48 M/mm3 (4.6-6.2)
[2019-08-28 08:17] VITALS: BP 133/89; PULSE 84; RESP 20; TEMP 36.6; O2SAT 98
[2019-08-28] MEDS: QUEtiapine 25 MG Tablet PO ×2 (08:26→20:14)
[2019-08-28] MEDS: Enoxaparin 40 MG/0.4 ML Syringe SC (08:35)
--- NOTE | 2019-08-28 08:56 | MRI_ITS ---
STUDY: MRI BRAIN WITHOUT CONTRAST REASON FOR EXAM: Male, 54 years old. Acute psychosis, sleep deprived TECHNIQUE: Standardized multiplanar fat and water weighted pulse sequences were obtained. COMPARISON: CT head without contrast 08/27/2019. FINDINGS: Normal size of the ventricles and extra-axial spaces for the patient''s age. Normal white matter tracts of the supratentorial brain. Normal bilateral basal ganglia. Normal thalami. There is no extra-axial fluid accumulation. Normal flow voids within the major intracranial circulation suggesting patency by spin echo criteria. Normal sella turcica, pituitary gland, infundibular stalk, optic chiasm and hypothalamus. Normal tectal plate and pineal gland. Normal midbrain, cl and medulla. Normal cerebellum. Normal basal cisterns. Normal bilateral temporal bones. Normal bilateral internal auditory canals. No demonstrated orbital abnormality, within the constraints of a routine brain study. Normal visualized paranasal sinuses. Normal calvarium and skull base. Normal visualized soft tissue structures. Normal visualized upper cervical spine. MRI/Brain without Contrast IMPRESSION: Normal unenhanced MRI of the brain. Electronically Signed: Max Ellis MD at 12:20 EDT , Service support ,
[2019-08-28] MEDS: LORazepam 2 MG/ML Syringe 1 MG IV (09:39)
--- NOTE | 2019-08-28 11:17 | NURSING ---
pt is back from MRI. This nurse went down with pt while getting MRI. Pt slept the whole time and was cooperative. Pt back in room and still asleep and is in the room. Update given to .
--- NOTE | 2019-08-28 12:20 | DS.PCM_ITS ---
Discharge Date and Diagnosis Date of Admission: 08/27/19 Date of Discharge: 08/28/19 - Primary Discharge Diagnosis Acute Problems: Active Problems (Last Updated 08/27/19 @ 21:[address] Sabas Blankenship MD) #1 acute psychosis. #2 prolonged insomnia/confusion. Hospital Course and Treatment Imaging Results: 08/28/19 08:56 Brain without Contrast [MRI] Stat Clinical Impression(s) from Imaging Studies Brain CT 08/27/19 17:30 IMPRESSION: Normal unenhanced CT scan of the brain. Electronically Signed: Mauricio Kessler MD at 18:17 EDT , Service support , Chest X-Ray 08/27/19 17:50 IMPRESSION: Normal x-ray examination of the chest. Electronically Signed: Mauricio Kessler MD at 18:12 EDT , Service support , Brain MRI 08/28/19 08:56 IMPRESSION: Normal unenhanced MRI of the brain. Electronically Signed: Max Ellis MD at 12:20 EDT , Service support , Consultations 08/28/19 10:43 Consult: Mental Health/Crisis Routine Reason for consult?: psychosis hasnt slept in 5-6wks Date Notified:: 08/28/19 Time Notified:: 10:44 Operations: None Procedures: None Summary of Care Provided: The patient is a 54 year old M presented to the emergency room because of confusion reported by his . According to the patient's , patient has not slept for the last 5 to 6 weeks and he has been having increasing stress at work. Patient's mentioned that patient has been keep repeating himself and laughing and this is new behavior for him. He has been having hallucinations as well. stated that he does not drink alcohol and he does not use drugs. His routine blood work was unremarkable. LFT and ammonia level were normal. Chest x-ray showed no acute findings. Urinalysis showed no evidence of infection. Urine drug screen was negative. Blood alcohol level was less than 3. CT scan brain done and showed no acute findings. Metabolic etiology of the confusion ruled out. There was no evidence of infection. MRI brain done and showed no acute findings. Patient's vitals are seen and stable. Mental health crisis team was consulted and recommended admission to inpatient psychiatric facility. Arrangement was made and patient was transferred to psychiatric facility for inpatient treatment. - Physical Exam Vitals/I&O's: Vital Signs Temp Pulse Resp BP Pulse Ox 97.9 F 84 20 H 133/89 H 98 08/28/19 08:17 08/28/19 08:17 08/28/19 08:17 08/28/19 08:17 08/28/19 08:17 Oxygen Delivery Method Room Air Weight: 157 lb 13.616 oz Body Mass Index (BMI) 22.0 Finger Stick Blood Glucose 73 Intake and Output for Last 24 Hours 08/26/19 08/27/19 08/28/19 23:59 23:59 23:59 Intake Total 300 / 300 Balance 300 / 300 General: Alert, Cooperative, No apparent distress, - HEENT: Atraumatic, PERRLA, EOMI, Normocephalic Oral: Moist Mucosa, No Gingival or Mucosal Lesions/ Ulcerations Neck: Supple, No JVD, Negative Carotid Bruits, Trachea Midline, Thyroid Normal Size and Texture Lungs: Clear to auscultation, Normal air movement, No rhonchi, No wheeze, No rales, Diminished Cardiovascular: Regular rate, Regular Rhythm, Normal S1, Normal S2, PMI Normal Abdomen: Bowel Sounds Present, Soft, Non Tender, Non-Distended, No Hepato- splenomegaly Extremities: No clubbing, No cyanosis, No edema Skin: No rashes, No breakdown Lymphatic: No Cervical, Supraclavicular, or Inguinal Adenopathy Neurological: Cranial nerves II-XII grossly intact, Neuro grossly intact Psych/Mental Status: Delusions, Impulsive Laboratory Results 08/27/19 17:45: WBC 12.0 H, RBC 5.25, Hgb 16.0, Hct 47.7, MCV 90.9, MCH 30.5, MCHC 33.5, RDW Std Deviation 40.1, RDW Coeff of Billy 12.1, Plt Count 304, MPV 8.8, Immature Gran % (Auto) 0.400, Neut % (Auto) 68.4, Lymph % (Auto) 21.8, Faulk % (Auto) 6.9, Eos % (Auto) 1.9, Baso % (Auto) 0.6, Absolute Neuts (auto) 8.2 H, Absolute Lymphs (auto) 2.62, Nucleated RBC % 0 08/27/19 17:45: PT 13.8, INR 1.1, APTT 33.6 08/27/19 17:45: Sodium 137, Potassium 4.1, Chloride 107, Carbon Dioxide 27.0, Anion Gap 3 L, BUN 10, Creatinine 1.06, Estim Creat Clear Calc 81.19, Est GFR (MDRD) Af Amer 93, Est GFR (MDRD) Non-Af 77, BUN/Creatinine Ratio 9.4 L, Glucose 92, Calcium 8.5, Total Bilirubin 0.90, AST 31, ALT 20, Alkaline Phosphatase 63, Total Protein 7.1, Albumin 3.6, Globulin 3.5, Albumin/Globulin Ratio 1.0 08/27/19 17:45: Ethyl Alcohol < 3.0 08/27/19 18:30: Urine Color Yellow, Urine Clarity Clear, Urine pH 6.5, Ur Specific Roxton 1.005, Urine Protein Negative, Urine Glucose (UA) Normal, Urine Ketones Negative, Urine Occult Blood 25 H, Urine Nitrite Negative, Urine Bilirubin Negative, Urine Urobilinogen Normal, Ur Leukocyte Esterase Negative, Urine RBC 0-5 SEEN, Urine WBC 0 SEEN, Ur Squamous Epith Cells 0-5 SEEN, Urine Bacteria 0 SEEN, Urine Mucus 0 SEEN 08/27/19 18:30: Urine Opiates Screen NEGATIVE, Urine Methadone Screen NEGATIVE, Ur Barbiturates Screen NEGATIVE, Ur Phencyclidine Scrn NEGATIVE, Ur Amphetamines Screen NEGATIVE, U Methamphetamin-MDMA NEGATIVE, U Benzodiazepines Scrn NEGATIVE, Urine Cocaine Screen NEGATIVE, U Cannabinoids Screen NEGATIVE, Ur Drug Screen Comment 08/27/19 21:06: Vitamin B12 425 08/27/19 21:06: Ammonia 30.0 08/27/19 21:06: RPR Pending 08/28/19 08:05: WBC 11.0, RBC 5.48, Hgb 16.5, Hct 48.7, MCV 88.9, MCH 30.1, MCHC 33.9, RDW Std Deviation 39.5, RDW Coeff of Billy 12.1, Plt Count 301, MPV 8.7, Immature Gran % (Auto) 0.400, Neut % (Auto) 68.5, Lymph % (Auto) 22.2, Faulk % (Auto) 6.5, Eos % (Auto) 1.8, Baso % (Auto) 0.6, Absolute Neuts (auto) 7.5, Absolute Lymphs (auto) 2.44, Nucleated RBC % 0 Current Medications Acetaminophen (Tylenol) 650 mg PO Q6H PRN PRN PRN Reason: Pain Score 1-10/Temp > 100.7 F Dextrose (D50w Syringe) 0 gm IV X1 PRN; Protocol PRN Reason: Hypoglycemia Enoxaparin Sodium (Lovenox) 40 mg SC DAILY [facility] Last Admin: 08/28/19 08:35 Dose: 40 mg Documented by: Glucagon () 1 mg IM .X1 PRN PRN Reason: Hypoglycemia Nicotine (Nicoderm Cq (Pbkc)) 21 mg TRANSDERM. DAILY [facility] Last Admin: 08/28/19 08:26 Dose: 21 mg Documented by: Nutritional Formula (Lactose Free) (Ensure Enlive) 120 ml PO 4X/DAY [facility] Last Admin: 08/28/19 08:26 Dose: 120 ml Documented by: Ondansetron HCl (Zofran) 4 mg IV Q8H PRN PRN PRN Reason: NAUSEA/VOMITING Quetiapine Fumarate (Seroquel) 25 mg PO BID [facility] Last Admin: 08/28/19 08:26 Dose: 25 mg Documented by: Sodium Chloride () 10 - 40 ml IV UD PRN PRN Reason: SALINE FLUSH Last Admin: 08/27/19 21:33 Dose: 10 ml Documented by: Home Medications: Medications to take at Discharge NK 07/14/19 Primary Care Physician: Damian Yates MD [Primary Care Provider] - Disposition: Psych Hospital or Unit Minutes spent on discharge:: 27 Patient Condition:: Stable Medical Necessity - Tobacco Use Smoking Status: Current every day smoker Tobacco Use: Cigarettes Meaningful Use Info Meaningful Use Diagnoses (Choose all that apply): None applicable OBSV E&M: 33876 Observation care discharge
--- NOTE | 2019-08-28 15:27 | CHAPLAIN ---
Type of Pastoral Visit ___ Initial Visit ___ Follow-up Visit ___ On-call Visit ___ General Patient Visit ___ Spiritual Assessment ___ Family Conference ___ Bereavement ___ Rapid Response ___ Code Blue _x__ Other (describe below) Pastoral Care Referral From ___ Patient ___ Family ___ Nurse ___ Physician ___ Bleach Packer ___ Supply Analyst ___ Other (describe below) Sacrament/Intervention ___ Active listening ___ Anointing ___ Mormon ___ Bereavement ___ Communion ___ Kelly exploration ___ ___ Life review ___ Prayer ___ Reconciliation ___ Sacrament of Sick ___ Supportive presence ___ Wedding ___ Other (describe below) Pastoral Comments patient was sleeping and did not disturb
[2019-08-28 17:37] VITALS: BP 130/74; PULSE 98; RESP 20; TEMP 36.9; O2SAT 96
[2019-08-28 20:15] VITALS: BP 135/95; PULSE 93; RESP 16; TEMP 36.8; O2SAT 98
--- NOTE | 2019-08-28 20:15 | NURSING ---
pt states he needs to use bathroom walked with him into bathroom pt laughing constantly, pointing at different items in bathroom wouldnt follow instructions to use toilet told rn to get in the shower, wouldnt stand or sit on commode, flushed commode without using, states i have to wash my hands before i pee, asked if she would try to direct him and she stated she felt comfortable doing this, pt did void for and returned to his chair.
--- NOTE | 2019-08-28 21:15 | NURSING ---
Called [facility] for transport to [facility] for Psychiatry. They can have a crew here at around [phone]. has been advised that we have an accepting facility.
--- NOTE | 2019-08-28 21:37 | NURSING ---
report called to mary [facility] [phone]. 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 here and aware
[2019-09-03 01:39] LABS: Rapid Plasmin Reagin (RPR) NONREACTIVE (NONREACTIVE)
== END 2019-08-28 23:20 ==
LOC: ED 18:10 → MS3 19:55
PROVIDERS: Admitting Provider Hospitalist; Emergency Provider Emergency Medicine; PCP Family Medicine; Visit Provider Hospitalist
DX: F23 Brief psychotic disorder (principal); F17.210 Nicotine dependence, cigarettes, uncomplicated; G47.00 Insomnia, unspecified
CPT/HCPCS: 36415; 70450; 70551; 71045; 80053; 80307; 80320; 81001; 82140; 82607; 85025; 85610; 85730; 86592; 93005; 96372; 96374; 99218; 99285; A4216; G0378; G0480

== ENCOUNTER → 2020-11-24 | Outpatient (CLI) | payer OTHER, SELFPAY ==
--- NOTE | 2020-11-24 09:40 | LES_PTH ---
PATIENT: YOVANA COX [facility] U#:[id number] AGE/SX: 55/M ROOM: RE11/24/[address]: Dr. Keny Yates MD : [id number] BED: DIS: 11/24/2020 SPEC #: [id number] RECD: 11/24/20 12:14 STATUS: ROSA FRANCOISE #: [id number] [place]: 11/24/20 09:[address]: Keny Yates DEPT: SURGICAL PATHOLOGY RECD BY: Sharifa Adorno Tissues: Skin of chest Procedures: Surgery Specimen Level IV HEADER OPERATION: Shave biopsy chest PRE-OP DIAGNOSIS: SCC TISSUE SUBMITTED: Chest shave biopsy MICROSCOPIC DIAGNOSIS Chest lesion, shave biopsy: Basal cell carcinoma with focal ulceration and associated acute inflammation. CONCHITA:robinson 11/25/2020 COMMENT Case has been reviewed in consultation with Dr. Randall who concurs with the above diagnosis. IDC:AM MICROSCOPIC DESCRIPTION Slides are reviewed. GROSS DESCRIPTION Received in fixative is one container labeled with the patient's name and designated shave. The specimen consists of a shave biopsy of loja-white skin measuring 1.2 x 1 x 0.1 cm. The specimen is inked, serially sectioned and submitted entirely in one cassette. / SJ:rg 11/24/20 TC:0 CPT: 98374
== END | disposition home or self-care (01) ==
LOC: LABSPEC 12:41
PROVIDERS: PCP Family Medicine; Referring Provider Family Medicine; Visit Provider Family Medicine
DX: C44.519 Basal cell carcinoma of skin of other part of trunk (principal)
CPT/HCPCS: 88305

== ENCOUNTER → 2022-01-08 | Outpatient (CLI) | payer OTHER, SELFPAY ==
[2022-01-08 15:27] LABS: Hematocrit 48.4 % (40-54); Mean Corp Hgb Conc 35.1 g/dL (32-36); Mean Corpuscular Hgb 30.8 pg (27.0-32.0); Mean Corpuscular Volume 87.7 fL (80-94); Mean Platelet Vol. 9.4 fl (6.2-12.0); Platelet Count 294 K/mm3 (150-450); RBC Distribution Width CV 12.6 % (11.6-14.6); RBC Distribution Width SD 40.7 fl (35.1-43.9); Red Blood Count 5.52 M/mm3 (4.6-6.2); White Blood Count 8.2 K/mm3 (4.4-11.0)
[2022-01-08 15:50] LABS: AST(SGOT) 24 U/L (15-37); Alanine Aminotransfer ALT/SGPT 25 U/L (16-61); Albumin, Serum 3.8 g/dL (3.2-5.0); Alkaline Phosphatase 80 U/L (45-117); Anion Gap 8 (5-15); BUN 11 mg/dL (7-18); Chloride 105 mmol/L (98-107); Creatinine, Serum 1.22 mg/dL (0.70-1.30); EST Glomerular Filtration Rate 65 mL/min (>60); Est Glom Filt Rate - Afr Amer 79 mL/min (>60); Globulin 3.8 g/dL (2.2-4.2); Glucose 90 mg/dL (74-106); PSA,Total - Annual Screen 1.43 ng/mL (0.00-4.00); Potassium 4.2 mmol/L (3.5-5.1); Protein, Total 7.6 g/dL (6.4-8.2); Sodium Level 137 mmol/L (136-145)
[2022-01-08 16:21] LABS: Vitamin D,25 Hydroxy 48.8 ng/mL
== END | disposition home or self-care (01) ==
LOC: MFPLAB 12:30
PROVIDERS: PCP Family Medicine; Referring Provider Family Medicine; Visit Provider Family Medicine
DX: F20.9 Schizophrenia, unspecified (principal); E55.9 Vitamin D deficiency, unspecified; Z12.5 Encounter for screening for malignant neoplasm of prostate
CPT/HCPCS: 36415; 80053; 82306; 84153; 85027; G0103

== ENCOUNTER → 2023-02-19 | Outpatient (CLI) | payer OTHER, SELFPAY ==
[2023-02-19 15:24] LABS: Vitamin D,25 Hydroxy 45.7 ng/mL
[2023-02-19 15:42] LABS: ALB/GLOB Ratio 0.9 RATIO (0.9-2.4); AST(SGOT) 33 U/L (15-37); Alanine Aminotransfer ALT/SGPT 34 U/L (16-61); Albumin, Serum 3.9 g/dL (3.2-5.0); Alkaline Phosphatase 94 U/L (45-117); Anion Gap 9 (5-15); BUN 20 mg/dL (7-18); BUN/Creat Ratio 16.4 RATIO (10-20); Calcium,Total 8.8 mg/dL (8.5-10.1); Chloride 104 mmol/L (98-107); Cholesterol 168 mg/dL (200); Creatinine, Serum 1.22 mg/dL (0.70-1.30); EST Glomerular Filtration Rate 65 mL/min (>60); Est Glom Filt Rate - Afr Amer 78 mL/min (>60); Globulin 4.4 g/dL (2.2-4.2); Glucose 106 mg/dL (74-106); High Density Lipoprotein 32 mg/dL; PSA,Total - Annual Screen 1.34 ng/mL (0.00-4.00); Potassium 3.7 mmol/L (3.5-5.1); Protein, Total 8.3 g/dL (6.4-8.2); Sodium Level 137 mmol/L (136-145); Triglycerides 428 mg/dL
== END | disposition home or self-care (01) ==
PROVIDERS: PCP Family Medicine; Referring Provider Family Medicine; Visit Provider Family Medicine
DX: F20.9 Schizophrenia, unspecified (principal); E78.5 Hyperlipidemia, unspecified; E55.9 Vitamin D deficiency, unspecified; Z12.5 Encounter for screening for malignant neoplasm of prostate
CPT/HCPCS: 36415; 80053; 80061; 82306; 84153; G0103

== ENCOUNTER → 2023-12-19 | Outpatient (CLI) | payer OTHER, SELFPAY ==
--- OUTSIDE RECORDS SUMMARY | 2023-12-19 10:38 | XMS RPT_ITS | CCD ---
Author Organization [email or web address] Results Test Name Value Interpretation Reference Range Facil jian Andrews 02-06-2021 CNPN Telephone (GENSWS) SHAYAN GODOY ([id number]) 1965 Date Time Provider Department 02/06/21 VIANEY CAMPOVERDE During your visit today, we recorded the following information about you: Vianey Campoverde MD 02/06/2021 10:41 AM Signed Spoke with patient via phone. Told patient pathology of polyps were hyperplastic , thus according to ACS guidelines, recommendations for screening colonoscopy in 10 years. Patient acknowledges above. HM updated. No recall letter generated as this function was deleted from the endoscopy updates Allergies As of Date: 02/06/2021 (No Known Allergies) Date Reviewed: 02/01/2021 Reviewed by: Katt Poe RN - Fully Assessed Reason for Visit: Results [95] Prescriptions as of 02/06/2021 - gabapentin (NEURONTIN) 100 mg capsule Take 100 mg by mouth three times daily. Take 2 Tablets, Three times Daily As needed - OLANZapine (ZYPREXA) 15 mg tablet Take 15 mg by mouth daily at bedtime. - modafinil (PROVIGIL) 200 mg tablet Take 200 mg by mouth once daily. - vortioxetine (TRINTELLIX) 20 mg tablet Take 1 tablet by mouth once daily. - modafinil (PROVIGIL) 200 mg tablet Take 1 tablet by mouth once daily for 90 days. - OLANZapine (ZYPREXA) 20 mg tablet Take 1 tablet by mouth daily at bedtime. - gabapentin (NEURONTIN) 100 mg capsule Take 2 capsules by mouth three times daily as needed for up to 180 days. Problem List As Of Date 02/06/2021 Noted Resolved Tobacco use disorder [F17.200] 12/08/2015 Encounter Status:Closed by VIANEY CAMPOVERDE on 02/06/21 Normal [facility] NURSING PROGon 02-01-2021 NURSING PROG HNO ID: [id number] Author: Edel Garcia RN Service: ? Author Type: Registered Nurse Type: Nursing Progress Note Filed: 02/01/2021 8:33 AM Note Text: [facility] PRE-OP NURSING HAND OFF NOTE SBAR Hand off given to Reina Pryor RN per Geraldine Vital RN. Hand off was communicated verbally and at the patient's bedside and all questions were answered. Eedl Garcia RN Normal [facility] SURGICAL PATHOLOGYon 021 SURGICAL PATHOLOGY Specimen originated from [facility] Specimen #: [id number] Submitting Physician: VIANEY CAMPOVERDE MD FINAL DIAGNOSIS Sigmoid colon, polyp, biopsy - Hyperplastic polyp. SID /mm 02/02/2021 James Elliott MD, Ph.D. (Electronic Signature) _ SPECIMEN SUBMITTED A: SIGMOID COLON POLYP CLINICAL DATA + COLOGARD TEST, FIRST SCREENING COLONOSCOPY GROSS DESCRIPTION A. Received in formalin is one piece of loja, soft tissue measuring 0.3 x 0.2 x 0.2 cm. Totally submitted in one cassette. Gross examination performed at [facility], [address] [place] [address] 02/01/2021 8:02:16 PM Date of Report: 02/03/2021 Date of Procedure: 02/01/2021 Date of Receipt: 02/01/2021 Submitted by: VIANEY CAMPOVERDE MD Location: [facility] Diagnostic interpretation performed at [facility], [address] [place] [id number]. [place] Number: [id number] Normal [facility] CNOVon 01-04-2021 CNOV Office Visit (SWS ) JAYNESHAYAN ([id number]) 1965 M Date Time Provider Department 01/04/21 3:20 PM VIANEY CAMPOVERDE During your visit today, we recorded the following information about you: Temperature Pulse Blood pressure Weight 98.5 degrees 109/minute 110/64 84.4 kg Height 1.803 m Melissasakina Maradiagaz 01/04/2021 3:25 PM Signed REVIEW OF SYSTEMS: General: The patient denies fatigue, denies weight loss, denies weight gain, denies feeling hot, and denies feelings of cold. Eyes: The patient denies glaucoma, denies eye injury/surgery, wears glasses or contacts. Ear/Nose/Throat: The patient denies allergies, denies hayfever, denies ear infections, and denies bloody noses. Cardiovascular: The patient denies chest pain, denies heart disease, denies high blood pressure,denies cardiac stent, denies prior heart attack, denies irregular heart beat, denies high cholesterol, denies poor circulation, denies heart failure, other cardiac issues, denies claudication, denies cold feet, denies peripheral arterial stent. Respiratory: The patient denies tuberculosis, denies pneumonia, denies frequent cough, denies pulmonary embolism, denies shortness of breath, and denies coughing up blood. Gastrointestinal: The patient denies difficulty swallowing, denies acid reflux, denies ulcers, denies vomiting, denies jaundice/hepatitis, denies gallbladder problems, denies black or tarry stools, denies hemorrhoids, denies bleeding from rectum, denies diverticulitis, denies constipation, denies diarrhea, denies loss of stool control, and denies hernias. Kidney/Bladder: The patient denies kidney stones, denies urine infections, and denies bloody urine. Skin: The patient NOTES a history of skin cancer, denies bleeding/changing moles, and denies a history of skin rash. Neurologic: The patient denies a history of epilepsy/convulsions, denies headaches, denies head/spinal injuries, and denies stroke/TIA. Psychiatric: The patient NOTES psychiatric medications, denies depression, and denies voices, denies substance abuse. Endocrine: The patient denies thyroid disorders, denies diabetes, and denies hormonal problems. Hematologic: The patient denies a history of bruising, denies bleeding, and denies anemia, denies blood clots. Infections: The patient denies a history of measles and mumps, denies rheumatic fever, and denies sexually transmitted diseases. Musculoskeletal: The patient denies back pain/injury, denies back problems, denies sciatica, denies knee/foot trouble, denies arthritis, or denies gout. When was patient's last Mammogram screening? N/A Last Colonoscopy: None Melissa Campoverde MD 01/04/2021 3:44 PM Signed At present, there is a national shortage of Golytely which is the common colon cleansing preparation. It usually comes in gallon form and this is protective of your kidneys. The other alternatives are prepopik, clenpiq, moviprep, suprep - all of which are usually not on the formularies of most insurances. The out of pocket costs usually range from $20 -$150. The following is an dtej-jfw-sypxgce (does not require a prescription) colon cleansing preparation - Purchase 2 - 32 oz bottles of Gatorade or Powerade in flavor of your choice as long as it is not red. Purchase 14 day supply of Miralax, 8.2 oz (can use generic form). Purchase 4 - 5mg Dulcolax (biscodyl) tablets Avoid high fiber content foods about three days prior to procedure as they tend to stay in the colon longer and are harder to clear from your colon. Two evenings prior to procedure, take all 4 Dulcolax tablets. For those who are working mini shifter (so as to avoid having to be near a toilet) - can take the 4 Dulcolax pills early in the morning, day prior to procedure. Take the 14 day supply of Miralax and divide in two and put each half in each bottle of Gatorade (pour out some of the Gatorade to accommodate for the volume of Miralax). Refridgerate. Day prior to procedure - no solid foods for entire day except for medications with sips of water. Clear liquid diet only - no red colored items. Water, tea/coffee (no dairy creamer), Gatorade/Powerade, broths, jello, Popsicles, juices without pulp Drink plenty of the above liquids, so as not to get dehydrated. Drink each bottle of Gatorade/Miralax at least 6 hours apart from each other and the second bottle at least 6 hours prior to the procedure. May drink both bottles the day before the procedure and/or time periods at your convenience. If it is easier for you to drink both bottles at once, then you may do so. Patients may take their medications on the morning of the procedure with sips of water and they may have small sips of water up until 2 hours prior to procedure. It is very important to follow the above, because if there is still retained fecal materi (more content not included)... Normal [facility] Darryl 01-04-2021 ELLIOTT Telephone (QAMAR) SHAYAN GODOY ([id number]) 1965 M Date Time Provider Department 01/04/21 VIANEY CAMPOVERDE During your visit today, we recorded the following information about you: Isrrael Tena 01/04/2021 4:09 PM Signed 12-08-2021 [facility] SURGICAL PHONE NOTE Date of Procedure/Surgery: 02-01-2021 Procedure/Surgery Type: COLONOSCOPY ? SEDATION:Conscious Sedation Location of Planned Procedure/Surgery: ? [facility] Surgery/Procedure Ordered: Yes COVID Testing Required: (FOR MAC CASES AND ASC PROCEDURES OTHER THAN COLON AND EGD): No Pre-Op Clearance Needed: No Prep Ordered:Yes: MIRALAX/DULCOLAX Prep Instructions given:Yes: Given in the office. Referral Completed:PAVE to complete. Patient Diabetic:No. Medication Considerations: Patient on blood Thinners: No Any other meds that need to be held: No Pacemaker or Defibrillator:No Patient/Family Informed of above information and given directions regarding location/arrival: Yes: Patient Transportation Considerations: No Other Important Information: No Any physical limitations: No Any cognitive limitations: No Respiratory Therapist Assistant/Photogrammetrist required: No Communication Limitations: No Allergies As of Date: 01/04/2021 (No Known Allergies) Date Reviewed: 01/04/2021 Reviewed by: Melissa Crocker - Fully Assessed Reason for Visit: 02-01-2021 [facility] [Other] Prescriptions as of 02/08/2021 - gabapentin (NEURONTIN) 100 mg capsule Take 100 mg by mouth three times daily. Take 2 Tablets, Three times Daily As needed - OLANZapine (ZYPREXA) 15 mg tablet Take 15 mg by mouth daily at bedtime. - modafinil (PROVIGIL) 200 mg tablet Take 200 mg by mouth once daily. - vortioxetine (TRINTELLIX) 20 mg tablet Take 1 tablet by mouth once daily. - modafinil (PROVIGIL) 200 mg tablet Take 1 tablet by mouth once daily for 90 days. - OLANZapine (ZYPREXA) 20 mg tablet Take 1 tablet by mouth daily at bedtime. - gabapentin (NEURONTIN) 100 mg capsule Take 2 capsules by mouth three times daily as needed for up to 180 days. Problem List As Of Date 01/04/2021 Noted Resolved Tobacco use disorder [F17.200] 12/08/2015 Encounter Status:Closed by ISRRAEL TENA on 02/08/21 [facility] Darryl 01-02-2021 [facility] Telephone (LizticGIVVER) SHAYAN GODOY ([id number]) 1965 M Date Time Provider Department 01/02/21 VIANEY CAMPOVERDE During your visit today, we recorded the following information about you: Di Thompson RN 01/02/2021 12:41 PM Signed First attempt to reach patient to reschedule office visit today at [address] Campoverde has an emergency surgery at [facility]. Patient should have been scheduled as an in person visit not virtual. We could see him earlier this afternoon or tomorrow. Di Thompson RN Allergies As of Date: 01/02/2021 (No Known Allergies) Date Reviewed: 09/08/2020 Reviewed by: Devaughn Hilton MD - Fully Assessed Reason for Visit: Appointment [186] Prescriptions as of 01/02/2021 - vortioxetine (TRINTELLIX) 20 mg tablet Take 1 tablet by mouth once daily. - modafinil (PROVIGIL) 200 mg tablet Take 1 tablet by mouth once daily for 90 days. - OLANZapine (ZYPREXA) 20 mg tablet Take 1 tablet by mouth daily at bedtime. - gabapentin (NEURONTIN) 100 mg capsule Take 2 capsules by mouth three times daily as needed for up to 180 days. Problem List As Of Date 01/02/2021 Noted Resolved Tobacco use disorder [F17.200] 12/08/2015 Encounter Status:Closed by DI THOMPSON RN on 01/02/21 Normal [facility] Clinical Note 02-01-2021 Note Date & Type Note Facility 02-01-2021 Note HNO ID: [id number] Author: Katt Poe RN Service: ? Author Type: Registered Nurse Type: Nursing Progress Note Filed: 02/01/2021 9:06 AM Note Text: Abdomen soft non-distended. Will continue to monitor. [facility] Progress note 02-01-2021 Note Date & Type Note Facility 02-01-2021 Note HNO ID: [id number] Author: Vianey Campoverde MD Service: ? Author Type: Physician Type: Progress Notes Filed: 02/01/2021 7:34 AM Note Text: HISTORY AND PHYSICAL ? Shayan Godoy 1965 ? REFERRING PHYSICIAN: Keny Yates, * ? CHIEF COMPLAINT: Consult (Colonoscopy) ? HPI: The patient is a 56 year old male presents for screening for colon cancer via colonoscopy ? He was found to be cologard positive. ? The patient denies blood in stools, denies abdominal pain, and denies changes in bowel habits. ? The patient notes no colon cancer in immediate family. ? The patient has not had previous colonoscopy. ? ? PAST MEDICAL HISTORY Diagnosis Date - Depression ? ? ? PAST SURGICAL HISTORY Procedure Laterality Date - NONE ? Current Outpatient Medications Medication Sig - gabapentin (NEURONTIN) 100 mg capsule Take 100 mg by mouth three times daily. Take 2 Tablets, Three times Daily As needed - OLANZapine (ZYPREXA) 15 mg tablet Take 15 mg by mouth daily at bedtime. - modafinil (PROVIGIL) 200 mg tablet Take 200 mg by mouth once daily. - vortioxetine (TRINTELLIX) 20 mg tablet Take 1 tablet by mouth once daily. - modafinil (PROVIGIL) 200 mg tablet Take 1 tablet by mouth once daily for 90 days. - OLANZapine (ZYPREXA) 20 mg tablet Take 1 tablet by mouth daily at bedtime. - gabapentin (NEURONTIN) 100 mg capsule Take 2 capsules by mouth three times daily as needed for up to 180 days. ? ? ALLERGIES: Patient has no known allergies. ? PERSONAL HISTORY: Social History ? Tobacco Use - Smoking status: Former Smoker ? ? Packs/day: 1.00 - Smokeless tobacco: Never Used Substance Use Topics - Alcohol use: No - Drug use: No ? FAMILY HISTORY Problem Relation Age of Onset - None Mother ? ? pacemaker - None Father ? - None Sister ? - None Maternal Grandmother ? ? - None Maternal Grandfather ? ? - None Paternal Grandmother ? ? - None Paternal Grandfather ? ? - None Daughter ? - None Son ? ? ? The review of systems data was entered by the nurse and reviewed by me ? Nursing Notes: Melissa Crocker 01/04/2021 3:25 PM Signed REVIEW OF SYSTEMS: General: The patient denies fatigue, denies weight loss, denies weight gain, denies feeling hot, and denies feelings of cold. Eyes: The patient denies glaucoma, denies eye injury/surgery, wears glasses or contacts. Ear/Nose/Throat: The patient denies allergies, denies hayfever, denies ear infections, and denies bloody noses. Cardiovascular: The patient denies chest pain, denies heart disease, denies high blood pressure,denies cardiac stent, denies prior heart attack, denies irregular heart beat, denies high cholesterol, denies poor circulation, denies heart failure, other cardiac issues, denies claudication, denies cold feet, denies peripheral arterial stent. Respiratory: The patient denies tuberculosis, denies pneumonia, denies frequent cough, denies pulmonary embolism, denies shortness of breath, and denies coughing up blood. Gastrointestinal: The patient denies difficulty swallowing, denies acid reflux, denies ulcers, denies vomiting, denies jaundice/hepatitis, denies gallbladder problems, denies black or tarry stools, denies hemorrhoids, denies bleeding from rectum, denies diverticulitis, denies constipation, denies diarrhea, denies loss of stool control, and denies hernias. Kidney/Bladder: The patient denies kidney stones, denies urine infections, and denies bloody urine. Skin: The patient NOTES a history of skin cancer, denies bleeding/changing moles, and denies a history of skin rash. Neurologic: The patient denies a history of epilepsy/convulsions, denies headaches, denies head/spinal injuries, and denies stroke/TIA. Psychiatric: The patient NOTES psychiatric medications, denies depression, and denies voices, denies substance abuse. Endocrine: The patient denies thyroid disorders, denies diabetes, and denies hormonal problems. Hematologic: The patient denies a history of bruising, denies bleeding, and denies anemia, denies blood clots. Infections: The patient denies a history of measles and mumps, denies rheumatic fever, and denies sexually transmitted diseases. Musculoskeletal: The patient denies back pain/injury, denies back problems, denies sciatica, denies knee/foot trouble, denies arthritis, or denies gout. When was patient's last Mammogram screening? N/A Last Colonoscopy: None Melissa Maradiagaz ? ? PHYSICAL EXAMINATION: ? General: The patient is 56 year old male, well nourished, well hydrated in no acute distress. The patient is oriented to time, place, and person. ? VITALS: Blood pressure 110/64, pulse 109, temperature 36.9 ?C (98.5 ?F), height 180.3 cm (5' 11 ), weight 84.4 kg (186 lb), SpO2 96 %. Body mass index is 25.94 kg/m?. ? Head: Normal cephalic, atraumatic ? (more content not included)... [facility] Progress note 01-04-2021 Note Date & Type Note Facility 01-04-2021 Note HNO ID: [id number] Author: Vianey Campoverde MD Service: ? Author Type: Physician Type: Progress Notes Filed: 01/07/2021 5:55 PM Note Text: HISTORY AND PHYSICAL Shayan Jayne 1965 REFERRING PHYSICIAN: Keny Yates, * CHIEF COMPLAINT: Consult (Colonoscopy) HPI: The patient is a 56 year old male presents for screening for colon cancer via colonoscopy He was found to be cologard positive. The patient denies blood in stools, denies abdominal pain, and denies changes in bowel habits. The patient notes no colon cancer in immediate family. The patient has not had previous colonoscopy. PAST MEDICAL HISTORY Diagnosis Date - Depression PAST SURGICAL HISTORY Procedure Laterality Date - NONE Current Outpatient Medications Medication Sig - gabapentin (NEURONTIN) 100 mg capsule Take 100 mg by mouth three times daily. Take 2 Tablets, Three times Daily As needed - OLANZapine (ZYPREXA) 15 mg tablet Take 15 mg by mouth daily at bedtime. - modafinil (PROVIGIL) 200 mg tablet Take 200 mg by mouth once daily. - vortioxetine (TRINTELLIX) 20 mg tablet Take 1 tablet by mouth once daily. - modafinil (PROVIGIL) 200 mg tablet Take 1 tablet by mouth once daily for 90 days. - OLANZapine (ZYPREXA) 20 mg tablet Take 1 tablet by mouth daily at bedtime. - gabapentin (NEURONTIN) 100 mg capsule Take 2 capsules by mouth three times daily as needed for up to 180 days. ALLERGIES: Patient has no known allergies. PERSONAL HISTORY: Social History Tobacco Use - Smoking status: Former Smoker Packs/day: 1.00 - Smokeless tobacco: Never Used Substance Use Topics - Alcohol use: No - Drug use: No FAMILY HISTORY Problem Relation Age of Onset - None Mother pacemaker - None Father - None Sister - None Maternal Grandmother - None Maternal Grandfather - None Paternal Grandmother - None Paternal Grandfather - None Daughter - None Son The review of systems data was entered by the nurse and reviewed by de Nursing Notes: Melissa Crocker 01/04/2021 3:25 PM Signed REVIEW OF SYSTEMS: General: The patient denies fatigue, denies weight loss, denies weight gain, denies feeling hot, and denies feelings of cold. Eyes: The patient denies glaucoma, denies eye injury/surgery, wears glasses or contacts. Ear/Nose/Throat: The patient denies allergies, denies hayfever, denies ear infections, and denies bloody noses. Cardiovascular: The patient denies chest pain, denies heart disease, denies high blood pressure,denies cardiac stent, denies prior heart attack, denies irregular heart beat, denies high cholesterol, denies poor circulation, denies heart failure, other cardiac issues, denies claudication, denies cold feet, denies peripheral arterial stent. Respiratory: The patient denies tuberculosis, denies pneumonia, denies frequent cough, denies pulmonary embolism, denies shortness of breath, and denies coughing up blood. Gastrointestinal: The patient denies difficulty swallowing, denies acid reflux, denies ulcers, denies vomiting, denies jaundice/hepatitis, denies gallbladder problems, denies black or tarry stools, denies hemorrhoids, denies bleeding from rectum, denies diverticulitis, denies constipation, denies diarrhea, denies loss of stool control, and denies hernias. Kidney/Bladder: The patient denies kidney stones, denies urine infections, and denies bloody urine. Skin: The patient NOTES a history of skin cancer, denies bleeding/changing moles, and denies a history of skin rash. Neurologic: The patient denies a history of epilepsy/convulsions, denies headaches, denies head/spinal injuries, and denies stroke/TIA. Psychiatric: The patient NOTES psychiatric medications, denies depression, and denies voices, denies substance abuse. Endocrine: The patient denies thyroid disorders, denies diabetes, and denies hormonal problems. Hematologic: The patient denies a history of bruising, denies bleeding, and denies anemia, denies blood clots. Infections: The patient denies a history of measles and mumps, denies rheumatic fever, and denies sexually transmitted diseases. Musculoskeletal: The patient denies back pain/injury, denies back problems, denies sciatica, denies knee/foot trouble, denies arthritis, or denies gout. When was patient's last Mammogram screening? N/A Last Colonoscopy: None Melissa Crocker PHYSICAL EXAMINATION: General: The patient is 56 year old male, well nourished, well hydrated in no acute distress. The patient is oriented to time, place, and person. VITALS: Blood pressure 110/64, pulse 109, temperature 36.9 ?C (98.5 ?F), height 180.3 cm (5' 11 ), weight 84.4 kg (186 lb), SpO2 96 %. Body mass index is 25.94 kg/m?. Head: Normal cephalic, atraumatic Eyes: pupils are equally round, sclera are clear Neck is supple without masses Respiratory: Normal respiratory excursion and pattern. Abdomina (more content not included)... [facility] Progress note 12-27-2020 Note Date & Type Note Facility 12-27-2020 Note HNO ID: [id number] Author: Claudine Best Population Health Navigator Service: ? Author Type: ? Type: Progress Notes Filed: 12/27/2020 1:57 PM Note Text: POPULATION HEALTH NAVIGATION OUTREACH Action/FYI Left a voice message and a my chart message re: pcp No care everywhere Contact made with patient or family member? NO Pt identified by name and : NO Outreach Outcome/Action Unable to reach patient: Left message [employer] message sent Reason for Outreach Attribution: Provider Off-boarding Payer: Payor: CHERY / Plan: CHERY PAYER SOLUTIONS OAP / Product Type: Open Access / Care Gap Reviewed:: Reminder: Reminder note to check Health Maintenance for items below Health Maintenance items due: COVID-19 VACCINE(1) Never done HEPATITIS C SCREENING Never done HIV SCREENING Never done DTAP,TDAP,TD(1 - Tdap) Never done ONE PNEUMOVAX PRIOR TO AGE 65 Never done LIPID SCREEN Never done DIABETES SCREEN Never done COLORECTAL CANCER SCREENING Never done SHINGRIX VACCINE(1 of 2) Never done DEPRESSION SCREENING due on 12/07/2016 PROSTATE CANCER SCREENING DISCUSSION Never done INFLUENZA(1) due on 10/26/2020 Advanced Directives Completed: Have you ever planned for future healthcare decisions with a power of patent attorney, living will, or advance directives? No. Please bring a copy to your next appointment or email to [email or web address] Referrals: N/A Message Sent to Practice: NO Navigation Signature: Claudine Best Population Health Navigator December 27, 2020 1:57 PM [facility] Clinical Note 12-27-2020 Note Date & Type Note Facility 12-27-2020 Note Patient Outreach (RICARDO LLAMAS) SHAYAN GODOY ([id number]) 1965 M Date Time Provider Department 12/27/20 CLAUDINE BEST During your visit today, we recorded the following information about you: Claudine Best Population Health Navigator 12/27/2020 1:57 PM Signed POPULATION HEALTH NAVIGATION OUTREACH Action/FYI Left a voice message and a my chart message re: pcp No care everywhere Contact made with patient or family member? NO Pt identified by name and : NO Outreach Outcome/Action Unable to reach patient: Left message [employer] message sent Reason for Outreach Attribution: Provider Off-boarding Payer: Payor: CHERY / Plan: [employer] PA[employer] OAP / Product Type: Open Access / Care Gap Reviewed:: Reminder: Reminder note to check Health Maintenance for items below Health Maintenance items due: COVID-19 VACCINE(1) Never done HEPATITIS C SCREENING Never done HIV SCREENING Never done DTAP,TDAP,TD(1 - Tdap) Never done ONE PNEUMOVAX PRIOR TO AGE 65 Never done LIPID SCREEN Never done DIABETES SCREEN Never done COLORECTAL CANCER SCREENING Never done SHINGRIX VACCINE(1 of 2) Never done DEPRESSION SCREENING due on 12/07/2016 PROSTATE CANCER SCREENING DISCUSSION Never done INFLUENZA(1) due on 10/26/2020 Advanced Directives Completed: Have you ever planned for future healthcare decisions with a power of patent attorney, living will, or advance directives? No. Please bring a copy to your next appointment or email to [email or web address] Referrals: N/A Message Sent to Practice: NO Navigation Signature: Claudine Best Population Health Navigator December 27, 2020 1:57 PM Allergies As of Date: 12/27/2020 (No Known Allergies) Date Reviewed: 09/08/2020 Reviewed by: Devaughn Hilton MD - Fully Assessed Reason for Visit: Population Health Navigation Outreach [[id number]] Cmt: Offboarding Prescriptions as of 12/27/2020 - vortioxetine (TRINTELLIX) 20 mg tablet Take 1 tablet by mouth once daily. - modafinil (PROVIGIL) 200 mg tablet Take 1 tablet by mouth once daily for 90 days. - OLANZapine (ZYPREXA) 20 mg tablet Take 1 tablet by mouth daily at bedtime. - gabapentin (NEURONTIN) 100 mg capsule Take 2 capsules by mouth three times daily as needed for up to 180 days. Problem List As Of Date 12/27/2020 Noted Resolved Tobacco use disorder [F17.200] 12/08/2015 Encounter Status:Closed by [facility] on 12/27/20 [facility] Progress note 09-08-2020 Note Date & Type Note Facility 09-08-2020 Note HNO ID: [id number] Author: Devaughn Hilton MD Service: ? Author Type: Physician Type: Progress Notes Filed: 09/08/2020 9:40 AM Note Text: Appointment done using secure audio and video communication. Informed consent obtained from the patient regarding telehealth visit. CC: Mood and Anxiety HPI: The patient was seen with his for this appointment. He reports that his mood has been fair. He has been lacking desire and motivation. He has been enjoying golfing. He has been taking care of yard at times. He has not been working lately. He reports that he has been getting 8 hours of sleep at night. He has been napping 1-2 hours in the afternoon. He reports that he tends to watch TV and read news paper during the day. He has not been going out much. He has been noting anxiety has been manageable. He has not had any panic attacks since . He has no change in appetite and weight. He has been distracted at times. He has not been reporting any issues with memory. He has been tired to some degree. He started Modafinil since end of July. He has noted no significant changes from it. His does not feel he is at baseline. She reports that he has not been active for a year. He has not been doing a lot. She feels he is less engaged since starting Modafinil he is less engaged. She reports that he watches TV all day. She reports that he is not paying attention to things and can tell her what is going on. She reports that he is to some degree always like to stay at home. He is more quiet in general. She reports that his attention to detail is lacking. Therapist:?Laurie Garcia? Hospitalization(s):?Yes: Total:?1; Most Recent?08/28/2019-09/08/2019 [facility] in [place], [place].? Hx of Suicide Attempts:?Never. ?No self injury ECT:?None Previous Discontinued Psychiatric Med Trials:??Zyprexa (lost benefit, orthostatic hypotension and constipation), Trazodone, Gabapentin, Prozac. Side effects: None Risks and benefits of the medication, including any black box warnings, were discussed with the patient. History reviewed. No pertinent past medical history. PAST SURGICAL HISTORY Procedure Laterality Date - NONE Review Of Symptoms: Per HPI. All other systems reviewed and negative for complaints. Past medical, surgical, social, and family history reviewed and changes noted above. MENTAL STATUS EXAMINATION: Well dressed, oriented to time, place, and person. Memory recent and remote tested and is fair. Memory tested secondary to repetition and recollection of history and orientation. Attention and concentration was fair. Fund of knowledge was fair. Cooperative with evaluation and is a relaible historian. Mood is noted to be I am ok. Affect is dysphoric to some degree. Speech is normal for rate, tone, and volume. Language is intact. Gait is steady. Thought form is linear. Associations: intact. Thought content: no paranoia, no suicidal or homicidal thoughts. Perception: no hallucinations. Judgment and insight is fair. VITAL SIGNS: There were no vitals filed for this visit. Interval Progress: Worse SINGLE ORGAN PSYCH EXAM: Constitutional: Well groomed, Well developed, Well nourished Musculoskeletal: Gait: Normal Pain:?0 ? DATA REVIEWED: Labs, Electronic medical record and?OARRS report.? ? ? Neuropsychological Testing:?None ? RISK FACTORS: ? SUICIDAL/HOMICIDAL IDEAS OR PLANS:?Denies ? SUICIDE RISK ASSESSMENT: ? Suicide Attempt(s):Patient denies previous suicide attempts.? Risk Factors:Loss Protective Factors:Effective and accessible clinical care, Restricted access to lethal means, Strong support system, Strong ties to medical/mental heatlh professionals, Skills in problem solving, Non-violent conflict resolution ? ? ? Diagnosis: Generalized Anxiety Disorder Major Depressive Disorder Recurrent?In Remission ? Personality Change Rule out Bipolar Disorder ? PLAN: -?Decrease Zyprexa?20 mg at bedtime. - Trintellix 20 mg daily.? - Gabapentin 200 mg 2-3 times daily as needed for anxiety.? - Increase Modafinil 200 mg daily. Send me a [employer] message with an update on how he does on that. - Recommended doing neuropsychological testing for personality change. - Reviewed hospital records.? - OARRS report reviewed. - Explained to the patient risks, benefits, side effects of the medications. Risks and side effects explained but not limited to black box warning. The patient has the capacity and gives me informed consent for the medication. - Check yourself in the ER or call 911 for help if you have any suicidal or homicidal thoughts, or if not able to take care of self at home with supports. - Recommended healthy and balanced diet. - Recommended seeing a therapist. - Labs reviewed. - Discussed the hazards of tobacco smoking (use). Smoking cessation recommended and techniques and options to help patient quit w (more content not included)... [facility] Progress note 06-15-2020 Note Date & Type Note Facility 06-15-2020 Note HNO ID: [id number] Author: Devaughn Hilton Service: ? Author Type: Physician Type: Progress Notes Filed: 06/15/2020 9:49 AM Note Text: Appointment done using secure audio and video communication. Informed consent obtained from the patient regarding telehealth visit. CC: Mood and Anxiety HPI: The patient reports that he has been doing good. He has been in fair mood and anxiety control. He has been noting no depression. He has been going out of the house and enjoying things. He has been sleeping well at night. He has been keeping himself busy with watching tv and reading things. He has no change in appetite. He has noted with quitting smoking and medications he has gained 10 lbs. He has been stable at this point and not gaining more. He was recommended to exercise regularly. He has been having fun and pleasure int things. He has desire and motivation to do things. He has no suicidal or homicidal thoughts. He has no hallucinations or paranoia. His reports that he is doing better overall. She reports that he had anxiety attack on Saturday. She reports that it lasted not too long. He took his medications and did deep breathing which helped. She feels some things might be bothering him. She is not sure what triggered it. She feels besides that he has done well. She reports that he has not been communicating well. Therapist:?Laurie Garcia? Hospitalization(s):?Yes: Total:?1; Most Recent?08/28/2019-09/08/2019 [facility] in [place], [place].? Hx of Suicide Attempts:?Never. ?No self injury ECT:?None Previous Discontinued Psychiatric Med Trials:??Zyprexa (lost benefit, orthostatic hypotension and constipation), Trazodone, Gabapentin, Prozac. Side effects: None other than some weight gain. Risks and benefits of the medication, including any black box warnings, were discussed with the patient. History reviewed. No pertinent past medical history. PAST SURGICAL HISTORY Procedure Laterality Date - NONE Review Of Symptoms: Per HPI. All other systems reviewed and negative for complaints. Past medical, surgical, social, and family history reviewed and changes noted above. MENTAL STATUS EXAMINATION: Well dressed, oriented to time, place, and person. Memory recent and remote tested and is fair. Memory tested secondary to repetition and recollection of history and orientation. Attention and concentration was fair. Fund of knowledge was fair. Cooperative with evaluation and is a relaible historian. Mood is noted to be I am ok. Affect is anxious to some degree. Speech is normal for rate, tone, and volume. Language is intact. Gait is steady. Thought form is linear. Associations: intact. Thought content: no paranoia, no suicidal or homicidal thoughts. Perception: no hallucinations. Judgment and insight is fair. VITAL SIGNS: There were no vitals filed for this visit. Interval Progress: Same SINGLE ORGAN PSYCH EXAM: Constitutional: Well groomed, Well developed, Well nourished Musculoskeletal: Gait: Normal Pain:?0 ? DATA REVIEWED: Labs, Electronic medical record and?OARRS report.? ? ? Neuropsychological Testing:?None ? RISK FACTORS: ? SUICIDAL/HOMICIDAL IDEAS OR PLANS:?Denies ? SUICIDE RISK ASSESSMENT: ? Suicide Attempt(s):Patient denies previous suicide attempts.? Risk Factors:Loss Protective Factors:Effective and accessible clinical care, Restricted access to lethal means, Strong support system, Strong ties to medical/mental heatlh professionals, Skills in problem solving, Non-violent conflict resolution ? ? ? Diagnosis: Generalized Anxiety Disorder Major Depressive Disorder Recurrent?In Remission Rule out Bipolar Disorder ? PLAN: -?Zyprexa?30 mg at bedtime. - Trintellix 10 mg daily for a week followed by 20 mg daily.? - Gabapentin 200 mg 2-3 times daily as needed for anxiety.? - Reviewed hospital records.? - OARRS report reviewed. - Explained to the patient risks, benefits, side effects of the medications. Risks and side effects explained but not limited to black box warning. The patient has the capacity and gives me informed consent for the medication. - Check yourself in the ER or call 911 for help if you have any suicidal or homicidal thoughts, or if not able to take care of self at home with supports. - Recommended healthy and balanced diet. - Recommended seeing a therapist. - Labs reviewed. - Discussed the hazards of tobacco smoking (use). Smoking cessation recommended and techniques and options to help patient quit were discussed. - Discussed importance of regular exercise and recommended starting or continuing a regular exercise program for good health. ? ? PSYCHIATRY APPOINTMENT:?Individual Therapy with E/M ? SUBJECTIVE:?The patient reports?his anxiety and depression are better controlled. ? OBJECTIVE:??Working on?assertive communication and improving things with . (more content not included)... [facility] Summary Purpose Family History No Family History Records Found Advance Directives No Advanced Directives Records Found Additional Source Comments (unrecognized sect ion and content) No Status Records Found INFORMATION SOURCE (unrecogn ized section and content) DATE CREATED AUTHOR 03/25/2021 [facility] FOR RECORDS PERTAINING TO PATIENTS WHO ARE OR HAVE BEEN ENROLLED IN A CHEMICAL DEPENDENCY/SUBSTANCEABUSE PROGRAM, SOME INFORMATION MAY BE OMITTED. This clinical summary was aggregated from multiple sources. Caution should be exercised in using it in the provision of clinical care. This summary normalizes information from multiple sources, and as a consequence, information in this document may materially change the coding, format and clinical context of patient data. In addition, data may be omitted in some cases. CLINICAL DECISIONS SHOULD BE BASED ON THE PRIMARY CLINICAL RECORDS. [facility] [employer] provides no warranty or guarantee of the accuracy or completeness of information in this document.
[2023-12-19 12:41] LABS: ALB/GLOB Ratio 1.1 RATIO (0.9-2.4); AST(SGOT) 26 U/L (15-37); Alanine Aminotransfer ALT/SGPT 23 U/L (16-61); Albumin, Serum 3.9 g/dL (3.2-5.0); Alkaline Phosphatase 55 U/L (45-117); Anion Gap 9 (5-15); BUN 24 mg/dL (7-18); Calcium,Total 9.1 mg/dL (8.5-10.1); Chloride 106 mmol/L (98-107); EST Glomerular Filtration Rate 51 mL/min (>60); Est Glom Filt Rate - Afr Amer 61 mL/min (>60); Globulin 3.6 g/dL (2.2-4.2); Glucose 83 mg/dL (74-106); PSA,Total- Diagnostic 1.67 ng/mL (0.0-4.0); Potassium 3.5 mmol/L (3.5-5.1); Protein, Total 7.5 g/dL (6.4-8.2); Sodium Level 140 mmol/L (136-145)
== END | disposition home or self-care (01) ==
LOC: MFPLAB 09:27
PROVIDERS: PCP Family Medicine; Referring Provider Family Medicine; Visit Provider Family Medicine
DX: Z00.00 Encounter for general adult medical examination without abnormal findings (principal); Z12.5 Encounter for screening for malignant neoplasm of prostate; E78.1 Pure hyperglyceridemia
CPT/HCPCS: 36415; 80053; 84153

== ENCOUNTER → 2024-01-10 | Outpatient (CLI) | payer OTHER, SELFPAY ==
[2024-01-10 15:20] LABS: Color, Urine Yellow (Yellow); Glucose, Dipstick Normal (Normal); Ketone-Dipstick Negative (Negative); Leukocyte Esterase-Dipstick 100 /ul (Negative); Nitrite-Dipstick Negative (Negative); Occult Blood-Urine 25 /ul (Negative); Protein-Dipstick 30 mg/dl (Negative); Specific Gravity, Urine 1.025 (1.002-1.030); Urine Bilirubin Dipstick Negative (Negative); Urine Clarity Clear (Clear); Urine Urobilinogen Normal (Normal)
== END | disposition home or self-care (01) ==
LOC: LABSPEC 11:45
PROVIDERS: PCP Family Medicine; Visit Provider Family Medicine
DX: Z00.00 Encounter for general adult medical examination without abnormal findings (principal)
CPT/HCPCS: 81002

== ENCOUNTER → 2024-12-22 | Outpatient (CLI) | payer OTHER, SELFPAY ==
[2024-12-22 09:58] LABS: Hematocrit 48.2 % (40-54); Hemoglobin 16.4 g/dL (13.0-16.5); Mean Corp Hgb Conc 34.0 g/dL (32-36); Mean Corpuscular Volume 87.6 fL (80-94); Mean Platelet Vol. 9.3 fl (6.2-12.0); Platelet Count 295 K/mm3 (150-450); RBC Distribution Width CV 12.5 % (11.6-14.6); RBC Distribution Width SD 40.1 fl (35.1-43.9); Red Blood Count 5.50 M/mm3 (4.6-6.2); White Blood Count 7.8 K/mm3 (4.4-11.0)
[2024-12-22 13:09] LABS: Anion Gap 11 (5-15); BUN 17 mg/dL (4-19); BUN/Creat Ratio 12.8 RATIO (10-20); Calcium,Total 9.4 mg/dL (7.6-11.0); Carbon Dioxide 25.0 mmol/L (21.0-32.0); Chloride 101 mmol/L (98-108); Glucose 87 mg/dL (70-99); PSA,Total - Annual Screen 1.29 ng/mL (0.02-4.00); Potassium 4.2 mmol/L (3.3-5.1)
== END | disposition home or self-care (01) ==
LOC: MFPLAB 09:10
PROVIDERS: PCP Family Medicine; Visit Provider Family Medicine
DX: Z12.5 Encounter for screening for malignant neoplasm of prostate (principal); N18.30 Chronic kidney disease, stage 3 unspecified
CPT/HCPCS: 36415; 80048; 84153; 85027; G0103